=== PATIENT | female | born 1940 | race Caucasian/White ===

== ENCOUNTER → 2016-03-05 | Outpatient (CLI) | payer OTHER ==
[~2016-03-05] MED LIST: CHOL4POW4 OR; LISI-275 PO; METO25TA62 OR; PANTPAK PO; TRIA25CA OR
== END | disposition home or self-care (01) ==
LOC: LAB 11:20
PROVIDERS: ATTEND Internal Medicine
DX: Z12.11 Encounter for screening for malignant neoplasm of colon (principal)
CPT/HCPCS: 82270

== ENCOUNTER → 2016-04-23 | Outpatient (CLI) | payer OTHER | END | disposition home or self-care (01) | LOC: XYW 08:06 | PROVIDERS: ATTEND Orthopaedic Surgery | DX: Z01.818 Encounter for other preprocedural examination (principal); I05.0 Rheumatic mitral stenosis; I35.0 Nonrheumatic aortic (valve) stenosis; M16.11 Unilateral primary osteoarthritis, right hip | CPT/HCPCS: 93306 ==

== ENCOUNTER → 2016-04-23 | Outpatient (CLI) | payer OTHER ==
[2016-04-23 09:46] LABS: Basophils # (auto) 0 uL; Basophils % (auto) 0.5 % (0.0-2.0); Eosinophils # (auto) 0.1 uL; Hematocrit 41.2 % (36.0-46.0); Hemoglobin 13.3 g/dL (12.2-16.2); Lymphocytes # (auto) 2.3 uL; Lymphocytes % (auto) 24.4 % (10.0-50.0); Mean Corpuscular Hemoglobin 28.5 pg (28.0-32.0); Mean Corpuscular Hgb Conc. 32.2 g/dL (32.0-36.0); Mean Corpuscular Volume 88.6 fL (80.0-100.0); Mean Platelet Volume 8.8 fL (7.4-10.4); Monocytes # (auto) 0.6 uL; Monocytes % (auto) 6.1 % (0.0-12.0); Neutrophils # (auto) 6.4 uL; Platelet Count (auto) 401 10^3/uL (140-450); Red Cell Distribution Width 15.8 % (11.6-16.0); White Blood Cell 9.4 10^3/uL (4.4-10.8)
[2016-04-23 09:57] LABS: Urine Bilirubin Negative (Negative); Urine Blood Negative /uL (Negative); Urine Color Yellow (Yellow); Urine Glucose Normal (Normal); Urine Ketone Negative (Negative); Urine RBC 1 /hpf (0 - 4); Urine Squamous Epithelial Cell FEW /hpf (<5); Urine Urobilinogen Normal (Negative)
[2016-04-23 10:00] LABS: Urine Nitrite POSITIVE (Negative)
[2016-04-23 10:06] LABS: INR 0.99 (0.9-1.15); Partial Thromboplastin Time 25.2 sec (22.64-33.71); Prothrombin Time 10.2 sec (9.37-12.3)
[2016-04-23 10:12] LABS: Albumin 3.3 g/dL (3.4-5.0); BUN/Creatinine Ratio 32.4; Bilirubin, Total 0.3 mg/dL (0.2-1.0); Calcium 10.1 mg/dL (8.5-10.1); Potassium 4.1 mmol/L (3.5-5.1); Total Protein 7.7 g/dL (6.4-8.2)
== END | disposition home or self-care (01) ==
LOC: LAB 08:58
PROVIDERS: ATTEND Internal Medicine
DX: E11.9 Type 2 diabetes mellitus without complications (principal); Z01.812 Encounter for preprocedural laboratory examination; I10 Essential (primary) hypertension
CPT/HCPCS: 36415; 80053; 80061; 81001; 82306; 82607; 83036; 84439; 84443; 85025; 85610; 85652; 85730

== ENCOUNTER → 2016-05-08 | Outpatient (CLI) | payer OTHER ==
[~2016-05-08] VITALS: Ht 170.2 cm; Wt 72.6 kg
[~2016-05-08] MED LIST changes: +ADENOSINE 61 MG in GIVE UN-DILUTED 0 ML IV ONE
== END | disposition home or self-care (01) ==
LOC: XY 08:14
PROVIDERS: ATTEND Internal Medicine Cardiovascular Disease
DX: Z01.810 Encounter for preprocedural cardiovascular examination (principal)
CPT/HCPCS: 78452; 93017; 96374; A9500; J0153

== ENCOUNTER 2016-05-14 10:06 | Inpatient (IN) | payer OTHER ==
[~2016-05-14] VITALS: Ht 170.2 cm; Wt 69.6 kg
[~2016-05-14 10:06] MED LIST changes: -ADENOSINE 61 MG in GIVE UN-DILUTED 0 ML IV ONE
[2016-05-14 10:56] LABS: Basophils # (auto) 0 uL; Basophils % (auto) 0.5 % (0.0-2.0); Eosinophils # (auto) 0.1 uL; Eosinophils % (auto) 1.7 % (0.0-7.0); Hematocrit 41.7 % (36.0-46.0); Hemoglobin 13.6 g/dL (12.2-16.2); Lymphocytes # (auto) 1.9 uL; Lymphocytes % (auto) 22.3 % (10.0-50.0); Mean Corpuscular Hemoglobin 28.8 pg (28.0-32.0); Mean Corpuscular Hgb Conc. 32.5 g/dL (32.0-36.0); Mean Corpuscular Volume 88.5 fL (80.0-100.0); Mean Platelet Volume 8.1 fL (7.4-10.4); Monocytes # (auto) 0.5 uL; Monocytes % (auto) 5.8 % (0.0-12.0); Neutrophils % (auto) 69.7 % (37.0-80.0); Platelet Count (auto) 464 10^3/uL (140-450); Red Cell Distribution Width 16.4 % (11.6-16.0); White Blood Cell 8.6 10^3/uL (4.4-10.8)
[2016-05-14 11:35] LABS: Albumin 3.4 g/dL (3.4-5.0); BUN/Creatinine Ratio 31.8; Bilirubin, Total 0.3 mg/dL (0.2-1.0); Calcium 10.4 mg/dL (8.5-10.1); Total Protein 7.6 g/dL (6.4-8.2)
[2016-05-14 11:37] LABS: Magnesium 2.3 mg/dL (1.6-2.6)
[2016-05-14 12:15] LABS: Urine RBC None Seen /hpf (0 - 4)
[2016-05-14 13:01] LABS: Urine Bilirubin Negative (Negative); Urine Blood Negative /uL (Negative); Urine Color Yellow (Yellow); Urine Glucose Normal (Normal); Urine Ketone Negative (Negative); Urine Nitrite Negative (Negative); Urine Squamous Epithelial Cell FEW /hpf (<5); Urine Urobilinogen Normal (Negative)
[2016-05-14] MEDS ORDERED: DEXTROSE (50%) 50ML SYRG IV PRN (14:00)
[2016-05-14] MEDS ORDERED: NITROGLYCERIN 0.4 MG SL TAB SL PRN (14:00)
[2016-05-14] MEDS ORDERED: DOCUSATE SOD 100 MG CAP PO PRN (14:00)
[2016-05-14] MEDS ORDERED: ACETAMINOPHEN 325 MG TAB PO PRN (14:00)
[2016-05-14] MEDS ORDERED: ONDANSETRON HCL 4 MG/2 ML VIAL IV PRN (14:00)
[2016-05-14] MEDS ORDERED: MORPHINE SULF INJ 2 MG/ML SYRINGE 1ML IV PRN ×2 (14:00)
[2016-05-14] MEDS ORDERED: TEMAZEPAM 15 MG CAP PO PRN (14:00)
[2016-05-14] MEDS ORDERED: ASPirin-EC 81 mg tab PO ONE (14:15)
[2016-05-14] MEDS: SODIUM CHLOR 0.9% PF (SALINE LOCK) 10ML VIAL IV SCH ×2 (14:21→22:09)
[2016-05-14] MEDS ORDERED: cefTRIAXone 1GM/50ML D5W 50 ML IV ONE (15:00)
[2016-05-14 16:25] VITALS: BP 137/89
[2016-05-14 16:36] VITALS: BP 148/72
[2016-05-14] MEDS: InsuLIN REG 1unit/0.01ml Soln (100units/ml) SC SCH ×2 (17:00→22:00)
[2016-05-14] MEDS: ACCU-CHEK COMFORT CURVE STRIP VI SCH ×2 (17:01→22:09)
[2016-05-14 20:00] VITALS: BP 142/81
[2016-05-14 22:00] VITALS: BP 142/81
[2016-05-14] MEDS ORDERED: FAMOTIDINE 20 MG TAB PO SCH (22:00)
[2016-05-14] MEDS: HYDROcodone-ACET 5/325MG TAB PO PRN (22:17)
[2016-05-15] VITALS (8 sets, daily range): BP systolic 106–166; BP diastolic 66–95
[2016-05-15 06:14] LABS: Basophils # (auto) 0 uL; Basophils % (auto) 0.5 % (0.0-2.0); Eosinophils # (auto) 0.2 uL; Eosinophils % (auto) 2.4 % (0.0-7.0); Hematocrit 39.5 % (36.0-46.0); Hemoglobin 12.8 g/dL (12.2-16.2); Lymphocytes # (auto) 3.1 uL; Lymphocytes % (auto) 36.9 % (10.0-50.0); Mean Corpuscular Hemoglobin 28.7 pg (28.0-32.0); Mean Corpuscular Hgb Conc. 32.3 g/dL (32.0-36.0); Mean Corpuscular Volume 88.8 fL (80.0-100.0); Mean Platelet Volume 8.5 fL (7.4-10.4); Monocytes # (auto) 0.6 uL; Monocytes % (auto) 7.6 % (0.0-12.0); Neutrophils # (auto) 4.4 uL; Neutrophils % (auto) 52.6 % (37.0-80.0); Platelet Count (auto) 401 10^3/uL (140-450); Red Cell Distribution Width 15.3 % (11.6-16.0); White Blood Cell 8.3 10^3/uL (4.4-10.8)
[2016-05-15] MEDS: ACCU-CHEK COMFORT CURVE STRIP VI SCH ×4 (06:29→22:16)
[2016-05-15] MEDS: SODIUM CHLOR 0.9% PF (SALINE LOCK) 10ML VIAL IV SCH ×3 (06:29→22:16)
[2016-05-15] MEDS: InsuLIN REG 1unit/0.01ml Soln (100units/ml) SC SCH ×4 (06:30→22:00)
[2016-05-15 06:39] LABS: Albumin 3.1 g/dL (3.4-5.0); Alkaline Phosphatase 97 U/L (45-117); Anion Gap 12 (5-15); Aspartate Aminotransferase 11 U/L (15-37); BUN/Creatinine Ratio 35.1; Bilirubin, Total 0.4 mg/dL (0.2-1.0); Blood Urea Nitrogen 40 mg/dL (7-18); Calcium 9.6 mg/dL (8.5-10.1); Carbon Dioxide 30 mmol/L (21-32); Chloride 104 mmol/L (98-107); GFR African American 60 mL/min; GFR Non-African American 50 mL/min; Glucose 137 mg/dL (74-106); Potassium 3.5 mmol/L (3.5-5.1); Sodium 146 mmol/L (136-145); Total Protein 7.2 g/dL (6.4-8.2)
[2016-05-15] MEDS: HYDROcodone-ACET 5/325MG TAB PO PRN ×3 (07:07→21:48)
[2016-05-15] MEDS ORDERED: CALCTAB83 OR ×2 (09:10→09:53)
[2016-05-15] MEDS ORDERED: CALC-386 OR (09:12)
[2016-05-15] MEDS: FAMOTIDINE 20 MG TAB PO SCH ×2 (09:33→21:48)
[2016-05-15] MEDS: cefTRIAXone 1GM/50ML D5W 50 ML IV SCH (09:33)
[2016-05-15] MEDS: ASPirin-EC 81 mg tab PO SCH (09:37)
[2016-05-15] MEDS: MULTIPLE VITAMIN TAB PO SCH (09:47)
[2016-05-15] MEDS: METOPROLOL SUCCINATE XL 50 MG TAB PO SCH (09:48)
[2016-05-15] MEDS: LISINOPRIL 20 MG TAB PO SCH (09:49)
[2016-05-15] MEDS ORDERED: ASPirin-EC 81 mg tab PO SCH ×2 (10:00→23:00)
[2016-05-15] MEDS ORDERED: CALCIUM W/VIT D (600MG/400IU) TAB PO SCH (10:00)
[2016-05-15] MEDS ORDERED: LISINOPRIL 20 MG TAB PO SCH ×2 (10:00→23:00)
[2016-05-15] MEDS ORDERED: TRIAMTERENE/HCTZ 37.5/25 MG CAP PO SCH (10:00)
[2016-05-15] MEDS ORDERED: METOPROLOL SUCCINATE XL 50 MG TAB PO SCH ×2 (10:00→23:00)
[2016-05-15] MEDS: CHOLESTYRAMINE 4 GM POWDER PO SCH ×2 (11:00→11:14)
[2016-05-15] MEDS: SODIUM CHLORIDE 0.9% 1,000 ML IV SCH (18:10)
[2016-05-16] MEDS: SODIUM CHLOR 0.9% PF (SALINE LOCK) 10ML VIAL IV SCH ×2 (05:45→13:48)
[2016-05-16 05:49] VITALS: BP 160/88
[2016-05-16 05:55] VITALS: BP_SYST 134; BP_SYST 158; BP_DIAS 100; BP_DIAS 77
[2016-05-16] MEDS: ACCU-CHEK COMFORT CURVE STRIP VI SCH ×2 (06:05→11:29)
[2016-05-16] MEDS: InsuLIN REG 1unit/0.01ml Soln (100units/ml) SC SCH ×2 (06:05→11:29)
[2016-05-16 07:51] LABS: BUN/Creatinine Ratio 27.6; Calcium 9.5 mg/dL (8.5-10.1); Potassium 3.9 mmol/L (3.5-5.1)
[2016-05-16] MEDS: SODIUM CHLORIDE 0.9% 1,000 ML IV SCH (08:13)
[2016-05-16] MEDS: cefTRIAXone 1GM/50ML D5W 50 ML IV SCH (08:13)
[2016-05-16] MEDS: HYDROcodone-ACET 5/325MG TAB PO PRN (08:14)
[2016-05-16] MEDS: FAMOTIDINE 20 MG TAB PO SCH (08:14)
[2016-05-16] MEDS: ASPirin-EC 81 mg tab PO SCH (09:54)
[2016-05-16] MEDS: MULTIPLE VITAMIN TAB PO SCH (09:54)
[2016-05-16] MEDS: METOPROLOL SUCCINATE XL 50 MG TAB PO SCH (09:57)
[2016-05-16] MEDS: LISINOPRIL 20 MG TAB PO SCH (09:58)
[2016-05-16] MEDS: CHOLESTYRAMINE 4 GM POWDER PO SCH (10:32)
[2016-05-16] MEDS ORDERED: CIPR-173 PO (12:50)
[2016-05-16 14:05] VITALS: BP 123/86
== END 2016-05-16 15:00 | disposition home or self-care (01) | DRG 314 ==
LOC: ER 10:06 → TELE 10:07 → TELE-WESTW 15:21
PROVIDERS: ADMIT Internal Medicine; ATTEND Internal Medicine
DX: I95.9 Hypotension, unspecified (principal); N17.0 Acute kidney failure with tubular necrosis; N39.0 Urinary tract infection, site not specified; R55 Syncope and collapse; N18.3 Chronic kidney disease, stage 3 (moderate); I12.9 Hypertensive chronic kidney disease with stage 1 through stage 4 chronic kidney disease, or unspecified chronic kidney disease; E83.52 Hypercalcemia; E11.21 Type 2 diabetes mellitus with diabetic nephropathy; E11.22 Type 2 diabetes mellitus with diabetic chronic kidney disease; B96.20 Unspecified Escherichia coli [E. coli] as the cause of diseases classified elsewhere; M16.11 Unilateral primary osteoarthritis, right hip; E78.5 Hyperlipidemia, unspecified; Z85.41 Personal history of malignant neoplasm of cervix uteri; Z79.899 Other long term (current) drug therapy; Z90.49 Acquired absence of other specified parts of digestive tract; Z90.89 Acquired absence of other organs; Z90.710 Acquired absence of both cervix and uterus
CPT/HCPCS: 36415; 72192; 78582; 80048; 80053; 80061; 81001; 82962; 83036; 83735; 84443; 84484; 85025; 85379; 87086; 87088; 87186; 93005; 93971; 94761; J0696

== ENCOUNTER → 2016-05-28 | Outpatient (CLI) | payer OTHER ==
[~2016-05-28] MED LIST changes: +CALCTAB83 OR; +CIPR-173 PO; -TRIA25CA OR
[2016-05-28 13:48] LABS: BUN/Creatinine Ratio 32.3; Calcium 10.1 mg/dL (8.5-10.1); Potassium 4.2 mmol/L (3.5-5.1)
== END | disposition home or self-care (01) ==
LOC: LAB 12:58
PROVIDERS: ATTEND Internal Medicine
DX: Z00.00 Encounter for general adult medical examination without abnormal findings (principal)
CPT/HCPCS: 36415; 80048; 84443

== ENCOUNTER 2016-07-03 10:08 | Inpatient (IN) | payer OTHER ==
[2016-06-29 14:47] LABS: Urine RBC None Seen /hpf (0 - 4)
[2016-06-29 15:06] LABS: Basophils # (auto) 0 uL; Basophils % (auto) 0.5 % (0.0-2.0); Eosinophils # (auto) 0.1 uL; Eosinophils % (auto) 1.6 % (0.0-7.0); Hematocrit 40.3 % (36.0-46.0); Hemoglobin 13.1 g/dL (12.2-16.2); Lymphocytes # (auto) 2.5 uL; Lymphocytes % (auto) 28.3 % (10.0-50.0); Mean Corpuscular Hemoglobin 29.5 pg (28.0-32.0); Mean Corpuscular Hgb Conc. 32.7 g/dL (32.0-36.0); Mean Corpuscular Volume 90.5 fL (80.0-100.0); Mean Platelet Volume 8.8 fL (7.4-10.4); Monocytes # (auto) 0.7 uL; Monocytes % (auto) 8.1 % (0.0-12.0); Neutrophils # (auto) 5.5 uL; Neutrophils % (auto) 61.5 % (37.0-80.0); Platelet Count (auto) 368 10^3/uL (140-450); Red Cell Distribution Width 16.1 % (11.6-16.0); White Blood Cell 8.9 10^3/uL (4.4-10.8)
[2016-06-29 15:13] LABS: Urine Bilirubin Negative (Negative); Urine Blood Negative /uL (Negative); Urine Color Yellow (Yellow); Urine Glucose Normal (Normal); Urine Ketone Negative (Negative); Urine Nitrite Negative (Negative); Urine Squamous Epithelial Cell FEW /hpf (<5); Urine Urobilinogen Normal (Negative)
[2016-06-29 15:27] LABS: INR 0.93 (0.9-1.15); Partial Thromboplastin Time 24.5 sec (22.64-33.71)
[2016-06-29 15:28] LABS: Albumin 3.5 g/dL (3.4-5.0); BUN/Creatinine Ratio 37.3; Bilirubin, Total 0.4 mg/dL (0.2-1.0); Calcium 10.1 mg/dL (8.5-10.1); Potassium 3.8 mmol/L (3.5-5.1); Total Protein 7.8 g/dL (6.4-8.2)
[~2016-07-03] VITALS: Ht 165.1 cm; Wt 76.5 kg
[~2016-07-03 10:08] MED LIST changes: -CALCTAB83 OR; -CHOL4POW4 OR; -CIPR-173 PO; +HYDR-391 PO; +LISI10TA6 PO; +TRIA75TA55 PO
[2016-07-03] MEDS ORDERED: ceFAZolin 1GM/50ML D5W 100 ML IV ONE (11:51)
[2016-07-03] MEDS ORDERED: TETRACAINE 1% INJ 2 ML VIAL IJ ONE (13:12)
[2016-07-03] MEDS ORDERED: MIDAZOLAM HCL 1MG/1ML-2 ML VIAL ONE (13:32)
[2016-07-03] MEDS ORDERED: fentaNYL CITRATE 100 MCG/2 ML VL ONE (13:32)
[2016-07-03] MEDS ORDERED: MEPERIDINE HCL (50 MG/ML) 1 ML VIAL ONE (13:32)
[2016-07-03] MEDS ORDERED: DEXAMETHASONE SOD PHOS 10MG/1ML VIAL INJ ONE (14:45)
[2016-07-03] MEDS ORDERED: PROPOFOL 10 MG/ML 20 ML IV ONE (14:45)
[2016-07-03] MEDS ORDERED: ONDANSETRON HCL 4 MG/2 ML VIAL IV ONE (16:30)
[2016-07-03] MEDS ORDERED: NITROGLYCERIN 0.4 MG SL TAB SL PRN (16:30)
[2016-07-03] MEDS ORDERED: ePHEDrine SULFATE 50 MG/ML AMP IV PRN (16:30)
[2016-07-03] MEDS ORDERED: MORPHINE SULF INJ 2 MG/ML SYRINGE 1ML IV PRN (16:30)
[2016-07-03] MEDS ORDERED: ACETAMINOPHEN 325 MG TAB PO PRN (16:30)
[2016-07-03] MEDS ORDERED: hydrALAZINE HCL 20 MG/ML VL IV PRN (16:30)
[2016-07-03] MEDS ORDERED: HYDROmorphone HCL 2 MG/ML VL IV PRN (16:30)
[2016-07-03 17:38] VITALS: BP 114/66
[2016-07-03] MEDS: ceFAZolin 1GM/50ML D5W 50 ML IV SCH (18:19)
[2016-07-03] MEDS: LACTATED RINGER'S 1,000 ML IV SCH (18:19)
[2016-07-03] MEDS: HYDROmorphone HCL 2 MG/ML VL IV PRN ×3 (18:48→23:13)
[2016-07-03] MEDS: HYDROcodone-ACET 10/325MG TAB PO PRN (19:41)
[2016-07-03 20:00] VITALS: BP 121/59
[2016-07-03 21:28] VITALS: BP 121/59
[2016-07-03] MEDS: SODIUM CHLOR 0.9% PF (SALINE LOCK) 10ML VIAL IV SCH (22:13)
[2016-07-03] MEDS: oxyCODONE ER 10 MG TAB PO SCH (22:13)
[2016-07-03] MEDS: DOCUSATE SOD 100 MG CAP PO SCH (22:13)
[2016-07-04] MEDS: ceFAZolin 1GM/50ML D5W 50 ML IV SCH ×2 (00:14→06:03)
[2016-07-04] MEDS: TEMAZEPAM 15 MG CAP PO PRN (01:52)
[2016-07-04] MEDS: HYDROmorphone HCL 2 MG/ML VL IV PRN ×3 (01:52→07:56)
[2016-07-04 04:55] VITALS: BP 112/59
[2016-07-04] MEDS: SODIUM CHLOR 0.9% PF (SALINE LOCK) 10ML VIAL IV SCH ×3 (06:03→20:59)
[2016-07-04] MEDS: HYDROcodone-ACET 10/325MG TAB PO PRN ×3 (06:53→15:44)
[2016-07-04 08:10] LABS: Hematocrit 35.9 % (36.0-46.0); Hemoglobin 11.7 g/dL (12.2-16.2)
[2016-07-04 09:01] VITALS: BP 131/67
[2016-07-04] MEDS: DOCUSATE SOD 100 MG CAP PO SCH ×2 (10:03→20:59)
[2016-07-04] MEDS: oxyCODONE ER 10 MG TAB PO SCH ×2 (10:04→20:59)
[2016-07-04] MEDS: ENOXAPARIN SOD 40 MG/0.4 ML SYRINGE SC SCH (10:04)
[2016-07-04] MEDS ORDERED: HYDROmorphone HCL 2 MG/ML VL IV PRN (11:00)
[2016-07-04] MEDS: LACTATED RINGER'S 1,000 ML IV SCH (12:25)
[2016-07-04 13:00] VITALS: BP 112/60
[2016-07-04 16:15] VITALS: BP 122/59
[2016-07-04] MEDS: MORPHINE SULF INJ 2 MG/ML SYRINGE 1ML IV PRN (18:49)
[2016-07-04 21:31] VITALS: BP 129/67
[2016-07-05 04:57] VITALS: BP 157/80
[2016-07-05] MEDS: MORPHINE SULF INJ 2 MG/ML SYRINGE 1ML IV PRN (05:25)
[2016-07-05] MEDS: SODIUM CHLOR 0.9% PF (SALINE LOCK) 10ML VIAL IV SCH ×3 (05:25→21:36)
[2016-07-05 06:44] LABS: BUN/Creatinine Ratio 19.7; Calcium 9.6 mg/dL (8.5-10.1); Potassium 3.6 mmol/L (3.5-5.1)
[2016-07-05 07:45] LABS: Hematocrit 35.2 % (36.0-46.0); Hemoglobin 11.7 g/dL (12.2-16.2)
[2016-07-05 08:00] VITALS: BP 149/77
[2016-07-05 08:01] VITALS: BP 149/77
[2016-07-05] MEDS: HYDROcodone-ACET 10/325MG TAB PO PRN (08:41)
[2016-07-05] MEDS ORDERED: CELECOXIB 100 MG CAP PO ONE (09:45)
[2016-07-05] MEDS: oxyCODONE ER 10 MG TAB PO SCH ×2 (10:00→21:37)
[2016-07-05] MEDS: CELECOXIB 100 MG CAP PO SCH (10:00)
[2016-07-05] MEDS: ENOXAPARIN SOD 40 MG/0.4 ML SYRINGE SC SCH (10:36)
[2016-07-05] MEDS: DOCUSATE SOD 100 MG CAP PO SCH ×2 (10:36→21:36)
[2016-07-05] MEDS: HYDROmorphone HCL 2 MG/ML VL IV PRN ×2 (10:36→16:38)
[2016-07-05 13:00] VITALS: BP 96/61
[2016-07-05 16:40] VITALS: BP 116/72
[2016-07-05 22:00] VITALS: BP 98/60
[2016-07-06] MEDS: HYDROcodone-ACET 10/325MG TAB PO PRN (04:41)
[2016-07-06 05:03] VITALS: BP 148/71
[2016-07-06] MEDS: SODIUM CHLOR 0.9% PF (SALINE LOCK) 10ML VIAL IV SCH ×3 (05:42→21:39)
[2016-07-06 07:06] LABS: Hematocrit 35.8 % (36.0-46.0); Hemoglobin 11.9 g/dL (12.2-16.2)
[2016-07-06 07:20] LABS: BUN/Creatinine Ratio 19.7; Potassium 3.6 mmol/L (3.5-5.1)
[2016-07-06 08:00] VITALS: BP 97/56
[2016-07-06 08:28] VITALS: BP 97/56
[2016-07-06] MEDS: oxyCODONE ER 10 MG TAB PO SCH ×2 (08:43→21:40)
[2016-07-06] MEDS: CELECOXIB 100 MG CAP PO SCH (08:43)
[2016-07-06] MEDS: DOCUSATE SOD 100 MG CAP PO SCH ×2 (08:43→21:40)
[2016-07-06] MEDS: ENOXAPARIN SOD 40 MG/0.4 ML SYRINGE SC SCH (08:44)
[2016-07-06 12:57] VITALS: BP 131/94
[2016-07-06] MEDS: HYDROmorphone HCL 2 MG/ML VL IV PRN (14:29)
[2016-07-06 17:05] VITALS: BP 117/73
[2016-07-06 21:39] VITALS: BP 166/78
[2016-07-07] VITALS (7 sets, daily range): BP systolic 142–179; BP diastolic 66–97
[2016-07-07] MEDS: SODIUM CHLOR 0.9% PF (SALINE LOCK) 10ML VIAL IV SCH ×3 (06:13→21:52)
[2016-07-07] MEDS: HYDROmorphone HCL 2 MG/ML VL IV PRN ×3 (06:25→16:54)
[2016-07-07 07:18] LABS: BUN/Creatinine Ratio 24.8; Calcium 9.7 mg/dL (8.5-10.1); Potassium 3.2 mmol/L (3.5-5.1)
[2016-07-07 07:30] LABS: Hematocrit 33.9 % (36.0-46.0); Hemoglobin 11.2 g/dL (12.2-16.2)
[2016-07-07] MEDS: oxyCODONE ER 10 MG TAB PO SCH ×2 (10:17→21:42)
[2016-07-07] MEDS: DOCUSATE SOD 100 MG CAP PO SCH ×2 (10:18→21:44)
[2016-07-07] MEDS: ENOXAPARIN SOD 40 MG/0.4 ML SYRINGE SC SCH (10:18)
[2016-07-07] MEDS ORDERED: BISACODYL 5 MG EC TAB PO ONE (12:00)
[2016-07-07] MEDS ORDERED: POTASSIUM CHL 10 Meq TABLET PO ONE (20:15)
[2016-07-07] MEDS ORDERED: LISINOPRIL 10 MG TAB PO ONE (20:15)
[2016-07-08] VITALS (8 sets, daily range): BP systolic 122–145; BP diastolic 63–92
[2016-07-08] MEDS: HYDROmorphone HCL 2 MG/ML VL IV PRN ×4 (03:43→16:25)
[2016-07-08] MEDS: SODIUM CHLOR 0.9% PF (SALINE LOCK) 10ML VIAL IV SCH ×3 (07:43→23:18)
[2016-07-08] MEDS: DOCUSATE SOD 100 MG CAP PO SCH ×2 (10:26→22:39)
[2016-07-08] MEDS: LISINOPRIL 10 MG TAB PO SCH (10:26)
[2016-07-08] MEDS: oxyCODONE ER 10 MG TAB PO SCH ×2 (10:26→22:40)
[2016-07-08] MEDS: ENOXAPARIN SOD 40 MG/0.4 ML SYRINGE SC SCH (10:27)
[2016-07-08] MEDS: TEMAZEPAM 15 MG CAP PO PRN (11:45)
[2016-07-09] VITALS (7 sets, daily range): BP systolic 104–157; BP diastolic 68–84
[2016-07-09 06:40] LABS: Basophils # (auto) 0 uL; Basophils % (auto) 0.2 % (0.0-2.0); Eosinophils # (auto) 0.1 uL; Eosinophils % (auto) 0.7 % (0.0-7.0); Hematocrit 29.8 % (36.0-46.0); Hemoglobin 9.9 g/dL (12.2-16.2); Lymphocytes # (auto) 0.9 uL; Lymphocytes % (auto) 12.8 % (10.0-50.0); Mean Corpuscular Hemoglobin 30.1 pg (28.0-32.0); Mean Corpuscular Hgb Conc. 33.4 g/dL (32.0-36.0); Mean Corpuscular Volume 90.1 fL (80.0-100.0); Monocytes # (auto) 0.7 uL; Monocytes % (auto) 9.2 % (0.0-12.0); Neutrophils # (auto) 5.6 uL; Neutrophils % (auto) 77.1 % (37.0-80.0); Platelet Count (auto) 358 10^3/uL (140-450); Red Cell Distribution Width 15.3 % (11.6-16.0); White Blood Cell 7.2 10^3/uL (4.4-10.8)
[2016-07-09] MEDS: HYDROcodone-ACET 10/325MG TAB PO PRN (06:55)
[2016-07-09] MEDS: SODIUM CHLOR 0.9% PF (SALINE LOCK) 10ML VIAL IV SCH ×3 (06:55→21:17)
[2016-07-09] MEDS: HYDROmorphone HCL 2 MG/ML VL IV PRN (09:45)
[2016-07-09] MEDS: oxyCODONE ER 10 MG TAB PO SCH ×2 (10:12→21:17)
[2016-07-09] MEDS: DOCUSATE SOD 100 MG CAP PO SCH ×2 (10:12→21:17)
[2016-07-09] MEDS: ENOXAPARIN SOD 40 MG/0.4 ML SYRINGE SC SCH (10:13)
[2016-07-09] MEDS: LISINOPRIL 10 MG TAB PO SCH (10:13)
[2016-07-09] MEDS ORDERED: HYDROmorphone HCL 2 MG/ML VL IV PRN (10:45)
[2016-07-09] MEDS: TEMAZEPAM 15 MG CAP PO PRN (21:17)
[2016-07-10 05:41] VITALS: BP 130/70
[2016-07-10] MEDS: SODIUM CHLOR 0.9% PF (SALINE LOCK) 10ML VIAL IV SCH ×2 (06:13→14:00)
[2016-07-10 08:00] VITALS: BP 153/86
[2016-07-10 08:27] VITALS: BP 153/86
[2016-07-10] MEDS: DOCUSATE SOD 100 MG CAP PO SCH (09:37)
[2016-07-10] MEDS: LISINOPRIL 10 MG TAB PO SCH (09:38)
[2016-07-10] MEDS: ENOXAPARIN SOD 40 MG/0.4 ML SYRINGE SC SCH (09:38)
[2016-07-10] MEDS: oxyCODONE ER 10 MG TAB PO SCH (09:38)
[2016-07-10] MEDS ORDERED: LACTULOSE 20Gm/30ML SOLN PO ONE (10:30)
[2016-07-10] MEDS ORDERED: POLYETHYLENE GLYCOL 17GM PWDR PO ONE (10:30)
[2016-07-10 11:36] VITALS: BP 153/86
[2016-07-10 12:30] VITALS: BP 133/88
[2016-07-10 16:27] VITALS: BP 135/75
== END 2016-07-10 17:51 | disposition home or self-care (01) | DRG 470 ==
LOC: SUR 10:08 → TELE-CENTR 10:09 → CENTRAL 19:21
PROVIDERS: ADMIT Orthopaedic Surgery; ATTEND Internal Medicine
PROC: 0SR90JZ Replacement of Right Hip Joint with Synthetic Substitute, Open Approach (ICD-10-PCS; principal; 2016-07-03 13:31)
DX: M16.11 Unilateral primary osteoarthritis, right hip (principal); M70.60 Trochanteric bursitis, unspecified hip; Z85.41 Personal history of malignant neoplasm of cervix uteri; Z92.3 Personal history of irradiation; E11.22 Type 2 diabetes mellitus with diabetic chronic kidney disease; I12.9 Hypertensive chronic kidney disease with stage 1 through stage 4 chronic kidney disease, or unspecified chronic kidney disease; N18.3 Chronic kidney disease, stage 3 (moderate)
CPT/HCPCS: 36415; 73501; 76775; 80048; 80053; 81001; 84132; 85014; 85018; 85025; 85610; 85730; 86850; 86900; 86901; 87070; 87075; 87205; 97110; 97116; 97530; A4565; J0690; J1100; J2250; J2704

== ENCOUNTER → 2016-07-20 | Outpatient (CLI) | payer OTHER ==
[2016-07-20 15:36] LABS: Basophils # (auto) 0 uL; Basophils % (auto) 0.2 % (0.0-2.0); DEFINITIVE VIEW TRANSMISSION; Eosinophils # (auto) 0.1 uL; Eosinophils % (auto) 0.8 % (0.0-7.0); Hematocrit 35.5 % (36.0-46.0); Hemoglobin 11.7 g/dL (12.2-16.2); Lymphocytes # (auto) 1.9 uL; Lymphocytes % (auto) 18.7 % (10.0-50.0); Mean Corpuscular Hgb Conc. 33.1 g/dL (32.0-36.0); Mean Corpuscular Volume 90.8 fL (80.0-100.0); Mean Platelet Volume 7.6 fL (7.4-10.4); Monocytes # (auto) 0.8 uL; Neutrophils # (auto) 7.4 uL; Neutrophils % (auto) 72.3 % (37.0-80.0); Red Cell Distribution Width 17.1 % (11.6-16.0); White Blood Cell 10.3 10^3/uL (4.4-10.8)
[2016-07-20 15:39] LABS: Albumin 2.8 g/dL (3.4-5.0); Calcium 9.5 mg/dL (8.5-10.1); Platelet Count (auto) 771 10^3/uL (140-450); Potassium 3.6 mmol/L (3.5-5.1)
[2016-07-20 15:42] LABS: Bilirubin, Total 0.2 mg/dL (0.2-1.0); Total Protein 7.2 g/dL (6.4-8.2)
== END | disposition home or self-care (01) ==
LOC: LAB 15:02
PROVIDERS: ATTEND Internal Medicine
DX: R19.7 Diarrhea, unspecified (principal)
CPT/HCPCS: 36415; 80053; 85025

== ENCOUNTER → 2016-07-24 | Outpatient (CLI) | payer OTHER | END | disposition home or self-care (01) | LOC: LAB 13:07 | PROVIDERS: ATTEND Internal Medicine | DX: E11.9 Type 2 diabetes mellitus without complications (principal); R19.7 Diarrhea, unspecified | CPT/HCPCS: 87493 ==

== ENCOUNTER → 2016-07-30 | Outpatient (CLI) | payer OTHER ==
[2016-07-30 10:31] LABS: Basophils # (auto) 0.1 uL; Basophils % (auto) 0.9 % (0.0-2.0); Eosinophils # (auto) 0.1 uL; Eosinophils % (auto) 1.7 % (0.0-7.0); Hematocrit 35.9 % (36.0-46.0); Hemoglobin 11.7 g/dL (12.2-16.2); Lymphocytes # (auto) 1.8 uL; Lymphocytes % (auto) 31.2 % (10.0-50.0); Mean Corpuscular Hemoglobin 29.7 pg (28.0-32.0); Mean Corpuscular Hgb Conc. 32.5 g/dL (32.0-36.0); Mean Corpuscular Volume 91.4 fL (80.0-100.0); Mean Platelet Volume 8.4 fL (7.4-10.4); Monocytes # (auto) 0.5 uL; Monocytes % (auto) 8.8 % (0.0-12.0); Neutrophils # (auto) 3.2 uL; Neutrophils % (auto) 57.4 % (37.0-80.0); Platelet Count (auto) 483 10^3/uL (140-450); White Blood Cell 5.7 10^3/uL (4.4-10.8)
== END | disposition home or self-care (01) ==
LOC: LAB 09:50
PROVIDERS: ATTEND Internal Medicine
DX: D47.3 Essential (hemorrhagic) thrombocythemia (principal); I10 Essential (primary) hypertension
CPT/HCPCS: 36415; 83036; 84132; 85025

== ENCOUNTER → 2017-03-05 | Outpatient (CLI) | payer OTHER ==
[~2017-03-05] MED LIST changes: -HYDR-391 PO; +HYDR-392 PO
[2017-03-05 13:03] LABS: Basophils # (auto) 0.1 uL; Eosinophils # (auto) 0.1 uL; Eosinophils % (auto) 2.3 % (0.0-7.0); Hematocrit 39.5 % (36.0-46.0); Hemoglobin 12.7 g/dL (12.2-16.2); Lymphocytes % (auto) 31.7 % (10.0-50.0); Mean Corpuscular Hemoglobin 29.6 pg (28.0-32.0); Mean Corpuscular Hgb Conc. 32.2 g/dL (32.0-36.0); Monocytes # (auto) 0.5 uL; Monocytes % (auto) 7.2 % (0.0-12.0); Neutrophils # (auto) 3.7 uL; Neutrophils % (auto) 57.8 % (37.0-80.0); Platelet Count (auto) 423 10^3/uL (140-450); Red Blood Cells 4.29 10^6/uL (4.0-5.20); Red Cell Distribution Width 15.2 % (11.8-14.3); White Blood Cell 6.3 10^3/uL (4.4-10.8)
[2017-03-05 13:50] LABS: Albumin 3.1 g/dL (3.4-5.0); BUN/Creatinine Ratio 28.2; Bilirubin, Total 0.3 mg/dL (0.2-1.0); Calcium 9.6 mg/dL (8.5-10.1); Total Protein 7.3 g/dL (6.4-8.2); Uric Acid 5.8 mg/dL (2.6-6.0)
== END | disposition home or self-care (01) ==
LOC: LAB 12:20
PROVIDERS: ATTEND Internal Medicine
DX: E11.9 Type 2 diabetes mellitus without complications (principal); D64.9 Anemia, unspecified
CPT/HCPCS: 36415; 80053; 83036; 83970; 84550; 85025

== ENCOUNTER → 2017-08-27 | Outpatient (CLI) | payer OTHER ==
[2017-08-27 12:25] LABS: Basophils # (auto) 0 uL; Basophils % (auto) 0.3 % (0.0-2.0); Eosinophils # (auto) 0.2 uL; Eosinophils % (auto) 2.5 % (0.0-7.0); Hematocrit 40.1 % (36.0-46.0); Hemoglobin 13.1 g/dL (12.2-16.2); Lymphocytes # (auto) 2.4 uL; Lymphocytes % (auto) 37.1 % (10.0-50.0); Mean Corpuscular Hemoglobin 29.9 pg (28.0-32.0); Mean Corpuscular Hgb Conc. 32.7 g/dL (32.0-36.0); Mean Corpuscular Volume 91.5 fL (80.0-100.0); Monocytes # (auto) 0.5 uL; Monocytes % (auto) 7.5 % (0.0-12.0); Neutrophils # (auto) 3.5 uL; Neutrophils % (auto) 52.6 % (37.0-80.0); Nucleated Red Blood Cells % 0.1 %; Platelet Count (auto) 291 10^3/uL (140-450); Red Blood Cells 4.38 10^6/uL (4.0-5.20); Red Cell Distribution Width 15.5 % (11.8-14.3); White Blood Cell 6.6 10^3/uL (4.4-10.8)
[2017-08-27 12:34] LABS: Urine Bacteria NONE SEEN /hpf (None Seen); Urine Blood Negative /uL (Negative); Urine Hyaline Cast FEW /lpf (0 - 2); Urine Specific Gravity 1.014 (1.001-1.035); Urine WBC 1 /hpf (0 - 5)
[2017-08-27 12:55] LABS: Free T4 (Free Thyroxine) 1.1 ng/dL (0.89-1.76)
[2017-08-27 13:05] LABS: Albumin 3.4 g/dL (3.4-5.0); BUN/Creatinine Ratio 24.8; Bilirubin, Total 0.4 mg/dL (0.2-1.0); Calcium 9.8 mg/dL (8.5-10.1); Potassium 3.8 mmol/L (3.5-5.1); Uric Acid 5.7 mg/dL (2.6-6.0)
== END | disposition home or self-care (01) ==
LOC: LAB 11:09
PROVIDERS: ATTEND Internal Medicine
DX: I12.9 Hypertensive chronic kidney disease with stage 1 through stage 4 chronic kidney disease, or unspecified chronic kidney disease (principal); E11.22 Type 2 diabetes mellitus with diabetic chronic kidney disease; N18.3 Chronic kidney disease, stage 3 (moderate); E78.5 Hyperlipidemia, unspecified; E78.00 Pure hypercholesterolemia, unspecified; Z79.899 Other long term (current) drug therapy
CPT/HCPCS: 36415; 80053; 80061; 81001; 82043; 82607; 83036; 83970; 84439; 84443; 84550; 85025; 85652

== ENCOUNTER → 2018-03-20 | Outpatient (CLI) | payer OTHER ==
[2018-03-20 14:07] LABS: Basophils # (auto) 0.1 uL; Basophils % (auto) 0.8 % (0.0-2.0); Eosinophils # (auto) 0.1 uL; Eosinophils % (auto) 1.7 % (0.0-7.0); Hematocrit 42.8 % (36.0-46.0); Hemoglobin 14.2 g/dL (12.2-16.2); Lymphocytes # (auto) 1.9 uL; Lymphocytes % (auto) 26.1 % (10.0-50.0); Mean Corpuscular Hemoglobin 30.7 pg (28.0-32.0); Mean Corpuscular Hgb Conc. 33.3 g/dL (32.0-36.0); Mean Corpuscular Volume 92.1 fL (80.0-100.0); Monocytes # (auto) 0.5 uL; Monocytes % (auto) 7.5 % (0.0-12.0); Neutrophils # (auto) 4.7 uL; Neutrophils % (auto) 63.9 % (37.0-80.0); Nucleated Red Blood Cells % 0.1 %; Platelet Count (auto) 305 10^3/uL (140-450); Red Blood Cells 4.64 10^6/uL (4.0-5.20); Red Cell Distribution Width 14.5 % (11.8-14.3); White Blood Cell 7.4 10^3/uL (4.4-10.8)
[2018-03-20 14:36] LABS: Albumin 3.3 g/dL (3.4-5.0); Calcium 9.5 mg/dL (8.5-10.1); Potassium 4.2 mmol/L (3.5-5.1)
[2018-03-20 14:40] LABS: BUN/Creatinine Ratio 32.3; Bilirubin, Total 0.4 mg/dL (0.2-1.0); Total Protein 7.1 g/dL (6.4-8.2); Uric Acid 6.4 mg/dL (2.6-6.0)
== END | disposition home or self-care (01) ==
LOC: LAB 13:51
PROVIDERS: ATTEND Internal Medicine
DX: I12.9 Hypertensive chronic kidney disease with stage 1 through stage 4 chronic kidney disease, or unspecified chronic kidney disease (principal); N18.3 Chronic kidney disease, stage 3 (moderate)
CPT/HCPCS: 36415; 80053; 83036; 83970; 84550; 85025

== ENCOUNTER → 2018-05-09 | Outpatient (CLI) | payer OTHER ==
[2018-05-09 13:48] LABS: Basophils # (auto) 0 uL; Basophils % (auto) 0.7 % (0.0-2.0); Eosinophils # (auto) 0.1 uL; Eosinophils % (auto) 1.5 % (0.0-7.0); Hemoglobin 13.9 g/dL (12.2-16.2); Lymphocytes # (auto) 2.2 uL; Lymphocytes % (auto) 29.8 % (10.0-50.0); Mean Corpuscular Hemoglobin 29.9 pg (28.0-32.0); Mean Corpuscular Hgb Conc. 32.4 g/dL (32.0-36.0); Mean Corpuscular Volume 92.5 fL (80.0-100.0); Monocytes # (auto) 0.5 uL; Monocytes % (auto) 6.4 % (0.0-12.0); Neutrophils # (auto) 4.5 uL; Neutrophils % (auto) 61.6 % (37.0-80.0); Nucleated Red Blood Cells % 0.1 %; Platelet Count (auto) 315 10^3/uL (140-450); Red Blood Cells 4.64 10^6/uL (4.0-5.20); Red Cell Distribution Width 14.9 % (11.8-14.3); White Blood Cell 7.3 10^3/uL (4.4-10.8)
[2018-05-09 13:52] LABS: Urine Bacteria NONE SEEN /hpf (None Seen); Urine Blood Negative /uL (Negative); Urine Mucus FEW (None Seen); Urine Specific Gravity 1.011 (1.001-1.035); Urine WBC 1 /hpf (0 - 5)
[2018-05-09 15:24] LABS: Albumin 3.3 g/dL (3.4-5.0); Calcium 9.5 mg/dL (8.5-10.1); Potassium 3.1 mmol/L (3.5-5.1)
[2018-05-09 15:27] LABS: BUN/Creatinine Ratio 27.8; Bilirubin, Total 0.4 mg/dL (0.2-1.0); Total Protein 7.3 g/dL (6.4-8.2)
== END | disposition home or self-care (01) ==
LOC: LAB 13:26
PROVIDERS: ATTEND Internal Medicine
DX: M25.50 Pain in unspecified joint (principal); G31.84 Mild cognitive impairment of uncertain or unknown etiology
CPT/HCPCS: 36415; 80053; 81001; 82607; 84443; 85025; 85652; 86200; 86431

== ENCOUNTER → 2018-10-03 | Outpatient (CLI) | payer OTHER ==
[2018-10-03 10:08] LABS: Basophils # (auto) 0.1 uL; Basophils % (auto) 1.1 % (0.0-2.0); Eosinophils # (auto) 0.1 uL; Eosinophils % (auto) 2.3 % (0.0-7.0); Hematocrit 39.9 % (36.0-46.0); Hemoglobin 13.1 g/dL (12.2-16.2); Lymphocytes # (auto) 2.3 uL; Lymphocytes % (auto) 36.6 % (10.0-50.0); Mean Corpuscular Hemoglobin 30.2 pg (28.0-32.0); Mean Corpuscular Hgb Conc. 32.9 g/dL (32.0-36.0); Mean Corpuscular Volume 91.8 fL (80.0-100.0); Monocytes # (auto) 0.4 uL; Monocytes % (auto) 6.7 % (0.0-12.0); Neutrophils # (auto) 3.3 uL; Neutrophils % (auto) 53.3 % (37.0-80.0); Nucleated Red Blood Cells % 0.1 %; Platelet Count (auto) 308 10^3/uL (140-450); Red Blood Cells 4.34 10^6/uL (4.0-5.20); Red Cell Distribution Width 15.7 % (11.8-14.3); White Blood Cell 6.3 10^3/uL (4.4-10.8)
[2018-10-03 10:40] LABS: Albumin 3.3 g/dL (3.4-5.0); Calcium 10.1 mg/dL (8.5-10.1)
[2018-10-03 10:43] LABS: BUN/Creatinine Ratio 25.2; Bilirubin, Total 0.3 mg/dL (0.2-1.0); Total Protein 7.4 g/dL (6.4-8.2)
== END | disposition home or self-care (01) ==
LOC: LAB 09:42
PROVIDERS: ATTEND Internal Medicine
DX: R59.0 Localized enlarged lymph nodes (principal)
CPT/HCPCS: 36415; 80053; 83615; 85025

== ENCOUNTER → 2018-11-11 | Outpatient (CLI) | payer OTHER ==
[2018-11-11 11:19] LABS: Basophils # (auto) 0 uL; Basophils % (auto) 0.7 % (0.0-2.0); Eosinophils # (auto) 0.1 uL; Eosinophils % (auto) 2.4 % (0.0-7.0); Hematocrit 39.2 % (36.0-46.0); Hemoglobin 12.7 g/dL (12.2-16.2); Lymphocytes # (auto) 1.8 uL; Lymphocytes % (auto) 32.3 % (10.0-50.0); Mean Corpuscular Hgb Conc. 32.3 g/dL (32.0-36.0); Mean Corpuscular Volume 92.9 fL (80.0-100.0); Monocytes # (auto) 0.5 uL; Monocytes % (auto) 9.3 % (0.0-12.0); Neutrophils # (auto) 3.1 uL; Neutrophils % (auto) 55.3 % (37.0-80.0); Platelet Count (auto) 307 10^3/uL (140-450); Red Blood Cells 4.22 10^6/uL (4.0-5.20); Red Cell Distribution Width 15.5 % (11.8-14.3); White Blood Cell 5.6 10^3/uL (4.4-10.8)
[2018-11-11 11:31] LABS: INR < 0.93 (0.9-1.15); Partial Thromboplastin Time 26.1 sec (23.64-32.05)
== END | disposition home or self-care (01) ==
LOC: LAB 10:48
PROVIDERS: ATTEND Internal Medicine
DX: Z01.818 Encounter for other preprocedural examination (principal); I10 Essential (primary) hypertension
CPT/HCPCS: 36415; 85025; 85610; 85730

== ENCOUNTER → 2018-11-12 | Outpatient (CLI) | payer OTHER ==
[~2018-11-12] VITALS: Ht 30.5 cm; Wt 0.5 kg
[~2018-11-12] MED LIST changes: +ATOR10TA PO; +CHL4PW PO; +FURO40TA4 PO; +GELATIN 1 SPONGE SIZE 50 TOP ONE; +LIDOCAINE 2%HCL (LOCAL ANESTH.) INJ 20ML MDV ONE; +MIDAZOLAM HCL 1MG/1ML-2 ML VIAL IV ONE; +MIDAZOLAM HCL 1MG/1ML-2 ML VIAL ONE; +POTA10TA51 PO; +fentaNYL CITRATE 100 MCG/2 ML VL IV ONE; +fentaNYL CITRATE 100 MCG/2 ML VL ONE
== END | disposition home or self-care (01) ==
LOC: CT 10:35
PROVIDERS: ATTEND Internal Medicine
DX: D49.89 Neoplasm of unspecified behavior of other specified sites (principal); Z85.41 Personal history of malignant neoplasm of cervix uteri; Z87.891 Personal history of nicotine dependence; Z90.49 Acquired absence of other specified parts of digestive tract; Z79.899 Other long term (current) drug therapy
CPT/HCPCS: 38505; 74170; 77012; 88305; 88342; J2250; J3010; 10022; 49180; 99152; 99153

== ENCOUNTER 2018-11-20 08:27 | Inpatient (IN) | payer OTHER ==
[~2018-11-20] VITALS: Ht 167.6 cm; Wt 90.0 kg
[2018-11-20] VITALS (24 sets, daily range): BP systolic 94–159; BP diastolic 28–83
[~2018-11-20 08:27] MED LIST changes: -ATOR10TA PO; -CHL4PW PO; -FURO40TA4 PO; -GELATIN 1 SPONGE SIZE 50 TOP ONE; -LIDOCAINE 2%HCL (LOCAL ANESTH.) INJ 20ML MDV ONE; -MIDAZOLAM HCL 1MG/1ML-2 ML VIAL IV ONE; -MIDAZOLAM HCL 1MG/1ML-2 ML VIAL ONE; -POTA10TA51 PO; -fentaNYL CITRATE 100 MCG/2 ML VL IV ONE; -fentaNYL CITRATE 100 MCG/2 ML VL ONE
[2018-11-20] MEDS ORDERED: ONDANSETRON HCL 4 MG/2 ML VIAL ONE (08:34)
[2018-11-20] MEDS ORDERED: MORPHINE SULFATE 4 MG/ML SYR/VIAL ONE (08:34)
[2018-11-20] MEDS ORDERED: SODIUM CHLORIDE 0.9% 1,000 ML IV ONE (08:44)
[2018-11-20] MEDS ORDERED: LORazepam 2MG/ML-1ML VIAL IV ONE (08:45)
[2018-11-20] MEDS ORDERED: ENOXAPARIN SOD 80 MG/0.8ML SYRINGE SC ONE (08:45)
[2018-11-20] MEDS ORDERED: NITROGLYCERIN 0.4 MG SL TAB SL ONE (08:45)
[2018-11-20] MEDS ORDERED: ONDANSETRON HCL 4 MG/2 ML VIAL IV ONE (09:00)
[2018-11-20] MEDS ORDERED: AZITHROMYCIN 500MG/ 250ML 250 ML IV ONE (09:00)
[2018-11-20] MEDS ORDERED: FUROSEMIDE 40 MG/4 ML VIAL IV ONE ×2 (09:00→12:45)
[2018-11-20] MEDS ORDERED: MORPHINE SULFATE 4 MG/ML SYR/VIAL IV ONE (09:00)
[2018-11-20] MEDS ORDERED: cefTRIAXone 1GM/50ML D5W 50 ML IV ONE (09:00)
[2018-11-20 09:11] LABS: Basophils # (auto) 0.1 uL; Basophils % (auto) 0.6 % (0.0-2.0); Eosinophils # (auto) 0.1 uL; Eosinophils % (auto) 0.7 % (0.0-7.0); Hematocrit 41.2 % (36.0-46.0); Hemoglobin 13.2 g/dL (12.2-16.2); Lymphocytes # (auto) 6.7 uL; Lymphocytes % (auto) 38.2 % (10.0-50.0); Mean Corpuscular Hemoglobin 29.9 pg (28.0-32.0); Mean Corpuscular Volume 93.6 fL (80.0-100.0); Monocytes # (auto) 0.8 uL; Monocytes % (auto) 4.5 % (0.0-12.0); Neutrophils # (auto) 9.8 uL; Platelet Count (auto) 322 10^3/uL (140-450); Red Blood Cells 4.41 10^6/uL (4.0-5.20); Red Cell Distribution Width 15.6 % (11.8-14.3); White Blood Cell 17.5 10^3/uL (4.4-10.8)
[2018-11-20] MEDS ORDERED: SUCCINYLCHOLINE CHLORIDE 20 MG/ML 10ML VIAL IV ONE ×2 (09:16→10:45)
[2018-11-20] MEDS ORDERED: ETOMIDATE (2MG/ML) 20ML VIAL IV ONE ×2 (09:16→10:45)
[2018-11-20] MEDS ORDERED: NOREPINEPHRINE 8 MG/250ML KIT 250 ML IV ONE (09:21)
[2018-11-20] MEDS ORDERED: MIDAZOLAM DRIP 50 mg/50mL 50 ML IV ONE (09:25)
[2018-11-20 09:30] LABS: INR < 0.93 (0.9-1.15); Partial Thromboplastin Time 21.8 sec (23.64-32.05)
[2018-11-20] MEDS: MIDAZOLAM DRIP 50 mg/50mL 50 ML IV SCH ×2 (09:30→22:48)
[2018-11-20 09:34] LABS: Albumin 3.3 g/dL (3.4-5.0); BUN/Creatinine Ratio 21.2; Calcium 9.4 mg/dL (8.5-10.1); Magnesium 2.4 mg/dL (1.6-2.6); Potassium 3.2 mmol/L (3.5-5.1)
[2018-11-20 09:36] LABS: Lactic Acid w/Reflex 7.9 mmol/L (0.4-2.0)
[2018-11-20 09:39] LABS: Bilirubin, Total 0.4 mg/dL (0.2-1.0); Total Protein 7.2 g/dL (6.4-8.2)
[2018-11-20 09:55] LABS: Urine WBC None Seen /hpf (0 - 5)
[2018-11-20] MEDS ORDERED: MIDAZOLAM HCL 1MG/1ML-2 ML VIAL ONE ×2 (10:10→13:47)
[2018-11-20] MEDS ORDERED: fentaNYL CITRATE 100 MCG/2 ML VL ONE ×2 (10:10→13:47)
[2018-11-20] MEDS ORDERED: LIDOCAINE 2%HCL (LOCAL ANESTH.) INJ 20ML MDV ONE ×2 (10:11→13:55)
[2018-11-20 10:25] LABS: Urine Bacteria NONE SEEN /hpf (None Seen); Urine Blood Negative /uL (Negative); Urine Specific Gravity 1.011 (1.001-1.035)
[2018-11-20] MEDS ORDERED: MORPHINE SULF INJ 2 MG/ML SYRINGE 1ML IV PRN (11:15)
[2018-11-20] MEDS ORDERED: NITROGLYCERIN 0.4 MG SL TAB SL PRN (11:15)
--- NOTE | 2018-11-20 11:23 | NUR ---
RECEIVED REPORT BILL FROM CUSTOMER SUPPORT EXECUTIVE PT COMING TO [facility]/ ICU STATUS PENDING TO BE SEEN BY DR. MCQUEEN. PT WAS SEEN BY CUSTOMER SUPPORT EXECUTIVE TO GET A CAROTID ARTERY CENTRAL LINE REMOVED.
--- NOTE | 2018-11-20 11:25 | NUR ---
RECEIVED PT FROM CONTRACTS SPECIALIST INTUBATED SEDATED ON 5 MG OF VERSED 8.0 ETT SECURED AT 23 CM AT THE LIP, PT HAVING LARGE WHITE FOAMY FROTHY SECRETIONS. PT HAS RT CAROTID SWELLING FROM WHERE A RT TLC WAS TAKEN OFF. SITE NO NO ACTIVE BLEEDING AT THE TIME. DRESSING IS CLEAN & DRY. VITAL SIGNS STABLE, PT AFEBRILE. PT HAS EKG WITH SOME ST ELEVATION, PT HAS ALREADY BEEN SEEN BY THE SENIOR VICE PRESIDENT FOR [facility] CAROTID ARTERY. PT STILL PENDING TO BE SEEN BY ED MD TO COMPLETE ADMISSION. DISCUSSED POC WITH PT'S . PT'S IS WAITING TO SPEAK WITH ADMITTING MD.
[2018-11-20] MEDS: fentaNYL Drip 2500mCg/250mlNS 250 ML IV SCH ×2 (12:28→21:00)
--- NOTE | 2018-11-20 12:30 | NUR ---
MD ROUNDING ON PT DR. JAUREGUI IN TO SEE PT HE ASSESSED PT AND HE SPOKE TO PT'S , HE DISCUSSED POC WITH PT'S AND HE ALSO CALLED DR. MORGAN TO REQUEST FOR HIM TO TAKE PT TO OBSTETRICS GYN PHYSICIAN. AT THAT TIME I NOTIFIED DR. JAUREGUI OF CRITICAL TROPONIN OF 8.31 AND STARTED PRINTING OUT THE CONSETS FOR HEART CRATERIZATION FOR PT'S SPOUSE TO SIGN.
[2018-11-20] MEDS ORDERED: PIPERACILLIN-TAZOB 2.25GM 50 ML IV ONE (12:45)
[2018-11-20] MEDS ORDERED: ASPirin 81 mg TAB PO ONE (12:45)
[2018-11-20] MEDS: ASPirin 81 mg TAB PO SCH (12:58)
[2018-11-20] MEDS ORDERED: ANGIOMAX 250 MG VIAL IV ONE (13:47)
[2018-11-20] MEDS ORDERED: SODIUM CHL 0.9% 0 ML ONE (13:47)
--- NOTE | 2018-11-20 14:11 | NUR ---
PT TAKEN TO OPTOMETRY DOCTOR VIA BED WITH OPTOMETRY DOCTOR CREW WITH CARDIAC MONITORING ACCOMPANIED BY RT.
--- NOTE | 2018-11-20 14:15 | NUR ---
TRANSPORTED PT TO STONE BELT SANDER AT THIS TIME. MANUALLY VENTILATED PT WITH 100% FIO2 OFFICE EQUIPMENT TECHNICIAN AT BEDSIDE. PEEP VALVE ATTACHED TO AMBUBAG. NO INCIDENT REPORTED. VENT SET UP AT [facility]. SPO2 93%, HR 100 WITH GOOD CHEST RISE OBSERVED. WILL CONTINUE TO MONITOR PT.
[2018-11-20] MEDS ORDERED: DOBUTamine 1000MCG/ML 250 ML IV ONE (14:43)
[2018-11-20] MEDS ORDERED: FUROSEMIDE 20 MG/2 ML VIAL ONE (15:31)
--- NOTE | 2018-11-20 16:53 | NUR ---
ICU TRANSFER PT TRANSFERRED TO ROOM 111, STATUS POST LEFT HEART CATH. IABP INSERTED TO RIGHT GROIN, NO BLEEDING OR HEMATOMA NOTED. DRESSING IS CDI. IABP IS SET TO 1:1 AUGMENTATION, AUTO TRIGGER. VEGA TO GRAVITY DRAINING YELLOW URINE. BILATERAL RADIAL AND PEDAL PULSES 2+, EQUAL, AND EXTREMITIES COOL TO TOUCH. CAP REFILL ON BILATERAL LE IS >3. INTUBATED WITH SIZE 8, 23 AT THE LIP. VENT SETTINGS: AC RATE 14, TV 550, FI02 70%, PEEP 8.
--- NOTE | 2018-11-20 19:00 | NUR ---
Initial Assessment Patient received laying on bed on mechanical ventilation and sedation. Patient is sedated with Versed at 10mg/min and is at -4 RASS. RN will titrate down on Versed for goal of -3 RASS. Ventilator plugged into red outlet, Ambu bag at bedside, oral care and suction rendered. PERRL intact and brisk. Hypoactive cough and gag present. Right neck dressing has old blood but no fresh blood present-RN will continue to monitor for any s/s of bleeding. Abd soft and round. Right groin IABP site present with dressing CDI-on 1:1 augmentation. Maintaining goal of 80 means and over [address] elevated on monitor which is unchanged since admission to ICU-no ectopy noted. No bleeding, ecchymosis, or hematoma present. Right groin TLC intact and patent x3 ports-running multiple IV infusions-refer to IV spreadsheet for titration specifics. F/C intact and draining clear/yellow urine to gravity. Neurovascular status intact with strong palpable distal pulses x4 extremities, skin cool to touch, and BLE capillary refill sluggish and BUE capillary refill brisk. Bed in lowest position, side rails up, bed brakes set, all alarms audible, in direct view of nurses station. Continue close monitoring.
--- NOTE | 2018-11-20 19:06 | NUR ---
Hospitalist paged re: potassium and glucose levels. Waiting for call back.
[2018-11-20] MEDS: PIPERACILLIN-TAZOB 2.25GM 50 ML IV SCH ×2 (19:12→23:53)
--- NOTE | 2018-11-20 19:25 | NUR ---
Hospitalist called back Informed Dr. Glaser of patient's lab values. He ordered: -administer 40meq Potassium IV x1 -start patient on Q6H mild scale SSI and Accuchecks starting 0000 -Re-check potassium with AM labs RN performed TORB and verified orders to be correct. No additional orders received.
[2018-11-20] MEDS ORDERED: POTASSIUM CHL 20MEQ/100ML 200 ML IV ONE (19:35)
[2018-11-20] MEDS: POTASSIUM CHL 20MEQ/100ML 100 ML IV SCH ×2 (19:40→21:15)
--- NOTE | 2018-11-20 21:00 | NUR ---
Fentanyl initiation Patient now moving bilateral hands toward ETT and has facial grimacing. RN attempted to re-orient patient and non-pharmacological pain measures for comfort but patient remains at risk of pulling out ETT and appears to be in pain. No PRN pain medication ordered. Patient started on fentanyl gtt per protocol/MD order. Patient tolerating well.
[2018-11-20] MEDS: NOREPINEPHRINE 8 MG/250ML KIT 250 ML IV SCH (21:11)
[2018-11-20] MEDS: ENOXAPARIN SOD 40 MG/0.4 ML SYRINGE SC SCH (21:30)
--- NOTE | 2018-11-20 22:00 | NUR ---
Raiology call RN called radiology to inquire about interpretation of the CXR. consultant technology states they will get in touch with radiologist to read XRAY.
[2018-11-20] MEDS ORDERED: ATOR10TA PO (22:14)
[2018-11-20] MEDS ORDERED: POTA10TA51 PO (22:14)
[2018-11-20] MEDS ORDERED: FURO40TA4 PO (22:14)
[2018-11-20] MEDS ORDERED: CHL4PW PO (22:14)
--- NOTE | 2018-11-20 22:30 | NUR ---
24 hour urine sample RN called medical laboratory assistant to inform of new order for 24 hour urine sample. She states she will have tax preparer bring the urine specimen collection jug.
[2018-11-20] MEDS: InsuLIN REG 1unit/0.01ml Soln (100units/ml) SC SCH (23:36)
[2018-11-20] MEDS: ACCU-CHEK COMFORT CURVE STRIP VI SCH (23:36)
[2018-11-21] VITALS (36 sets, daily range): BP systolic 94–118; BP diastolic 41–73
--- NOTE | 2018-11-21 | NUR ---
Cooling measures Temperature 100.2 oral. Cooling measures intact. Patient tolerating well with no s/s of shivering or distress noted.
--- NOTE | 2018-11-21 01:00 | NUR ---
Ongoing assessment Patient now at -3 RASS and is not showing any s/s of pain or discomfort. Patient being turned, all bony prominences and heels offloaded with pillows, skin is clean and dry. Maintaining IABP precautions (not flexing hips, bending knees, or crossing legs). Patient in reverse trendelenberg position. Oral care and suction being performed. Neurovascular status remains intact and unchanged with strong palpable distal pulses. Cooling measures remain intact with no shivering or distress noted. IABP insertion site remains benign. Good urine output noted. All fall and safety precautions are intact. Continue close monitoring.
--- NOTE | 2018-11-21 02:30 | NUR ---
IV removal IV to left hand DC'd with clean sterile technique, catheter fully intact. dressing applied to site. No bleeding noted. Patient tolerated well.
--- NOTE | 2018-11-21 03:30 | NUR ---
Bed bath/linen change Patient given complete CHG bath,all linens and gowns changed. Skin re-assessed for any changes and none noted. Patient tolerated well. Optifoam gentle adhesive dressing remains CDI to sacral area to prevent friction and shear.
[2018-11-21 03:58] LABS: Basophils # (auto) 0 uL; Basophils % (auto) 0.2 % (0.0-2.0); Eosinophils # (auto) 0 uL; Hematocrit 39.7 % (36.0-46.0); Hemoglobin 13.2 g/dL (12.2-16.2); Lymphocytes # (auto) 1.1 uL; Lymphocytes % (auto) 6.1 % (10.0-50.0); Mean Corpuscular Hemoglobin 30.4 pg (28.0-32.0); Mean Corpuscular Hgb Conc. 33.1 g/dL (32.0-36.0); Mean Corpuscular Volume 91.8 fL (80.0-100.0); Monocytes # (auto) 0.9 uL; Monocytes % (auto) 4.9 % (0.0-12.0); Neutrophils # (auto) 16.5 uL; Neutrophils % (auto) 88.8 % (37.0-80.0); Nucleated Red Blood Cells % 0.2 %; Platelet Count (auto) 251 10^3/uL (140-450); Red Blood Cells 4.32 10^6/uL (4.0-5.20); Red Cell Distribution Width 15.4 % (11.8-14.3); White Blood Cell 18.6 10^3/uL (4.4-10.8)
[2018-11-21 04:58] LABS: Albumin 2.6 g/dL (3.4-5.0); Calcium 8.9 mg/dL (8.5-10.1); Potassium 4.7 mmol/L (3.5-5.1)
[2018-11-21 05:01] LABS: BUN/Creatinine Ratio 19.4; Bilirubin, Total 0.5 mg/dL (0.2-1.0); Total Protein 6.4 g/dL (6.4-8.2)
[2018-11-21] MEDS: InsuLIN REG 1unit/0.01ml Soln (100units/ml) SC SCH ×3 (05:40→17:18)
[2018-11-21] MEDS: ACCU-CHEK COMFORT CURVE STRIP VI SCH ×3 (05:40→17:19)
[2018-11-21] MEDS: PIPERACILLIN-TAZOB 2.25GM 50 ML IV SCH ×3 (05:40→17:19)
[2018-11-21] MEDS: DOBUTamine 1000MCG/ML 250 ML IV SCH ×3 (05:41→18:20)
--- NOTE | 2018-11-21 07:00 | NUR ---
Report given No changes or incidents to report. Neurovascular status remains intact with palpable distal pulses x4 extremities. IABP site remains benign with no s/s of bleeding, bruising, or hematoma present. Central line remains free of any s/s of infiltration or phlebitis. Care endorsed to day shift RN.
--- NOTE | 2018-11-21 08:00 | NUR ---
Opening shift note Report received from security shift manager RN, morning assessment performed and documented. Patient laying in bed, mechanically ventilated and sedated. PERRL intact and brisk. Hypoactive cough and gag present. Right neck dressing clean, dry and intact. Right groin IABP site intact with dressing CD -on 1:1 augmentation, no bleeding, redness or swelling noted to site. ST elevated on monitor noted which is unchanged since admission to ICU with no ectopy. Peripheral pulses present with strong palpable radial pulses bilaterally to touch and strong lower extremity pulses using doppler. B/L upper extremity capillary refill brisk and B/L lower extremity capillary refill sluggish, skin cool to touch on all extremities. Cee catheter intact and draining clear/yellow urine to gravity. Fall and safety precautions in place. Will continue to monitor during shift.
--- NOTE | 2018-11-21 08:27 | NUR ---
24 HR URINE COLLECTION CORRECTION CONTACT LAB REGARDING 24 HOUR URINE COLLECTION. VERIFIED THAT URINE MUST BE PLACED IN ICE, THEREFORE URINE COLLECTION MUST BE RESTARTED. WILL RECEIVING NEW COLLECTION CANISTER. VEGA CATHETER PLACED IN ICE IN MEANTIME WHILE LAB BRINGS NEW CANISTER.
[2018-11-21] MEDS: MIDAZOLAM DRIP 50 mg/50mL 50 ML IV SCH ×2 (08:57→18:56)
[2018-11-21] MEDS: FUROSEMIDE 40 MG/4 ML VIAL IV SCH (10:35)
[2018-11-21] MEDS: ENOXAPARIN SOD 40 MG/0.4 ML SYRINGE SC SCH ×2 (10:35→22:00)
--- NOTE | 2018-11-21 11:20 | NUR ---
FAMILY AT BEDSIDE PATIENT'S SPOUSE HASEEB AT BEDSIDE AND UPDATED ON PATIENT'S STATUS. THIS NURSE NOTED PATIENT TO BE FACIAL GRIMACING AND ATTEMPTING TO REACH AT ETT WITH LEFT HAND. SEDATION INCREASED. PATIENT'S SPOUSE AWARE AND STATED HE UNDERSTOOD THAT PATIENT MAY BE GETTING AGITATED. YENNY SITTING AT PATIENT'S BEDSIDE.
--- NOTE | 2018-11-21 11:36 | NUR ---
NUTRITION CONSULT/ASSESSMENT NOTES Please refer to link notes of nutrition screen form filed under the intervention section of the plan of care for further details. Est. Needs: 1550 kcal to 1900 kcal (20-25 kcal/kgBW), 61 gms to 77 gms pro (0.8-1.0 gms/kgBW). Will continue to monitor pertinent labs and reassess nutrient need prn Thank you for this consult. Addendum: 11/21/18 at [address] Amended: Links added.
--- NOTE | 2018-11-21 14:28 | NUR ---
CONTACT PHARMACY REGARDING PENDING PROTONIX DUE EARLIER THIS MORNING. PHARMACY STATED THEY WOULD SEND TO UNIT, PENDING RECEIPT FOR ADMINISTRATION, DR MA AWARE.
[2018-11-21] MEDS: LINEZOLID 600MG/300ML 300 ML IV SCH (14:32)
--- NOTE | 2018-11-21 14:32 | NUR ---
PAGED CARDIOLOGY DR MORGAN TO NOTIFY OF AUGMENTED PRESSURE IN THE HIGH 80'S TO 90'S AND HAVING TO INCREASE LEVOPHED TO 26 MCG TO KEEP AUG PRESSURE OVER 100 ORDERED. AWAITING RESPONSE.
[2018-11-21 14:43] LABS: Lactic Acid w/Reflex 2.8 mmol/L (0.4-2.0)
--- NOTE | 2018-11-21 15:10 | NUR ---
CALL RECEIVED FROM NEPHROLOGY/URINE SENT DR ALVAREZ UPDATED ON PATIENT'S STATUS AND REASON FOR CONSULT. ORDERS RECEIVED AND WILL BE CARRIED OUT. URINE SENT TO LAB.
--- NOTE | 2018-11-21 15:40 | NUR ---
WOUND CARE NOTE: Wound care consult received for low Arjun score. Patient is a 78yo female admitted for respiratory failure. Patient with a history of hypertension, chronic kidney disease, hyperlipidemia, and cervical cancer. Patient is seen in ICU with bedside RN, Cintia. Patient is currently intubated and on an IABP. Last Arjun score is 14. No open wounds noted. Bilateral lower extremities are mottled and cool to touch. Heels blanching and are off loaded with pillows. RECOMMENDATIONS: Dietary consult; turn q2hrs; Nursing to cleanse buttocks with mild soap and water, pat dry, apply ZGUARD BID/PRN soiling, may apply sacral OPTIFOAM GENTLE for friction/shear prevention; wound care team to follow.
--- NOTE | 2018-11-21 15:53 | NUR ---
FAMILY/ULTRASOUND AT BEDSIDE PATIENT'S SPOUSE YENNY UPDATED ON PATIENT'S STATUS AND HOSPITALIST/NEPHROLOGY ORDERS. YENNY VERBALIZED UNDERSTANDING. WET POUR MIXER AT BEDSIDE.
[2018-11-21 16:24] LABS: Urine Bacteria FEW /hpf (None Seen); Urine Blood 1+ /uL (Negative); Urine Mucus FEW (None Seen); Urine Specific Gravity 1.013 (1.001-1.035); Urine WBC 2 /hpf (0 - 5)
--- NOTE | 2018-11-21 16:43 | NUR ---
CARDIOLOGY AT BEDSIDE DR MORGAN UPDATED ON PATIENT'S STATUS, DRIPS, VS, URINE OUTPUT AND PATIENT'S SPOUSE CONCERNS. DISCUSSED DIAGNOSIS WITH YENNY, PATIENT'S AND PLAN OF CARE. ORDERS TO CONSULT ONCOLOGY FOR BIOPSY RESULTS. YENNY VERBALIZED UNDERSTANDING.
--- NOTE | 2018-11-21 16:45 | NUR ---
HEMATOLOGY/ONCOLOGY CONSULT CALLED SPOKE WITH FLOR - CONSULT PLACED, FAMILY AWARE.
[2018-11-21] MEDS: SODIUM CHLORIDE 0.9% 1,000 ML IV SCH (16:53)
[2018-11-21 16:57] LABS: Sodium Urine 70 mmol/L (40-220)
[2018-11-21 16:59] LABS: Creatinine, Urine 35 mg/dL (30.0-125.0)
--- NOTE | 2018-11-21 17:15 | NUR ---
PULMONOLOGY AT BEDSIDE DR BENITEZ UPDATED ON PATIENT'S STATUS AND REASON FOR CONSULT. DR BENITEZ DISCUSSED PLAN OF CARE WITH PATIENT'S SPOUSE YENNY AT BEDSIDE - YENNY VERBALIZED UNDERSTANDING. NO VERBAL ORDERS GIVEN AT THIS TIME.
[2018-11-21] MEDS: PANTOPRAZOLE 40 MG/10 ML VIAL INJ IV SCH (17:21)
--- NOTE | 2018-11-21 17:22 | NUR ---
PROTONIX NOT ADMINISTERED PER PHARMACY, "SHOULD RECEIVE TONIGHT AND WILL DELIVER FOR ADMINISTRATION TOMORROW". DR MA AWARE.
[2018-11-21] MEDS: NOREPINEPHRINE 8 MG/250ML KIT 250 ML IV SCH (18:20)
--- NOTE | 2018-11-21 18:50 | NUR ---
Respiratory note: RECEIVED PT ON VENT V9, VENT CONNECTED TO RED OUTLET AND O2 SOURCE. ALARMS ARE SET AND AUDIBLE. AMBU BAG AND MASK AT BEDSIDE. BS ARE FINE COURSE IN BILATERAL BASES, SXD VIA ETT FOR SCANT CLEAR/ WHITE. WILL CONTINUE TO MONITOR, RT NAME AND PAGER ASSIGNMENT WRITTEN ON PTS ROOM BOARD.
--- NOTE | 2018-11-21 20:03 | NUR ---
Respiratory note: ROUTINE VENT CHECK NO CHANGES MADE AT THIS TIME WILL CONTINUE TO MONITOR Q2H.
--- NOTE | 2018-11-21 20:07 | NUR ---
Respiratory note: SPOKE TO DR BENITEZ REGARDING POSSIBILITY OF TITRATING PEEP. DR BENITEZ STATES LEAVE THE PEEP, PT CAN GO STRAIGHT TO CPAP WITH PEEP OF 8CMH2O. NO NEW ORDERS GIVEN AT THIS TIME. WILL ATTEMPT TO TITRATE FIO2 DURING MY SHIFT. FIO2 RIGHT NOW VIA VENT SET AT 40%. WILL CONTINUE TO MONITOR.
--- NOTE | 2018-11-21 22:09 | NUR ---
Respiratory note: AT BEDSIDE FOR ROUTINE VENT CHECK. NO VENT CHANGES OR SXD DONE AT THIS TIME WILL CONTINUE TO MONITOR Q2H.
[2018-11-21] MEDS ORDERED: AMIODARONE HCL 900 MG IV ONE (22:33)
[2018-11-21] MEDS ORDERED: AMIODARONE HCL (50 MG/ ML) 3 ML VIAL IV ONE (22:34)
[2018-11-22] VITALS (33 sets, daily range): BP systolic 92–124; BP diastolic 39–77
--- NOTE | 2018-11-22 00:03 | NUR ---
Respiratory note: AT BEDSIDE FOR ROUTINE VENT CHECK. FIO2 TITRATED TO 35%. BEAU GARCIA MADE AWARE OF O2 CHANGE. NO SXD DONE AT THIS TIME WILL CONTINUE TO MONITOR Q2H.
--- NOTE | 2018-11-22 02:16 | NUR ---
Respiratory note: AT BEDSIDE FOR ROUTINE VENT CHECK. SXD FOR SCANT CLEAR/WHITE. BEAU GARCIA AT BEDSIDE. WILL CONTINUE TO MONITOR Q2H.
[2018-11-22] MEDS: LINEZOLID 600MG/300ML 300 ML IV SCH ×2 (03:00→14:59)
[2018-11-22] MEDS: SODIUM CHLORIDE 0.9% 1,000 ML IV SCH ×3 (03:45→20:00)
--- NOTE | 2018-11-22 04:18 | NUR ---
Respiratory note: END OF SHIFT VENT CHECK. HME AND SX CATHETER CHANGED AT THIS TIME. WILL HAVE DAY SHIFT RT CONTINUE POC.
[2018-11-22 04:19] LABS: Basophils # (auto) 0.1 uL; Basophils % (auto) 0.6 % (0.0-2.0); Eosinophils # (auto) 0 uL; Eosinophils % (auto) 0.2 % (0.0-7.0); Hematocrit 34.7 % (36.0-46.0); Hemoglobin 11.6 g/dL (12.2-16.2); Lymphocytes # (auto) 1.4 uL; Lymphocytes % (auto) 9.7 % (10.0-50.0); Mean Corpuscular Hemoglobin 30.1 pg (28.0-32.0); Mean Corpuscular Hgb Conc. 33.5 g/dL (32.0-36.0); Mean Corpuscular Volume 89.8 fL (80.0-100.0); Monocytes # (auto) 1.3 uL; Monocytes % (auto) 9.1 % (0.0-12.0); Neutrophils # (auto) 11.6 uL; Neutrophils % (auto) 80.4 % (37.0-80.0); Platelet Count (auto) 183 10^3/uL (140-450); Red Blood Cells 3.87 10^6/uL (4.0-5.20); White Blood Cell 14.4 10^3/uL (4.4-10.8)
[2018-11-22 04:54] LABS: Albumin 2.3 g/dL (3.4-5.0); Calcium 8.3 mg/dL (8.5-10.1)
[2018-11-22 04:59] LABS: Bilirubin, Total 0.8 mg/dL (0.2-1.0); Total Protein 5.7 g/dL (6.4-8.2)
[2018-11-22] MEDS ORDERED: AMIODARONE HCL 150 MG in D5W 5% 100 ML IV ONE (05:00)
[2018-11-22] MEDS ORDERED: AMIODARONE HCL 900 MG in DEXTROSE 500 ML IV SCH ×2 (05:03→11:03)
[2018-11-22] MEDS: DOBUTamine 1000MCG/ML 250 ML IV SCH (05:45)
[2018-11-22] MEDS: PIPERACILLIN-TAZOB 2.25GM 50 ML IV SCH ×5 (06:00→23:35)
[2018-11-22] MEDS: InsuLIN REG 1unit/0.01ml Soln (100units/ml) SC SCH ×5 (06:25→23:36)
[2018-11-22] MEDS: ACCU-CHEK COMFORT CURVE STRIP VI SCH ×5 (06:26→23:34)
--- NOTE | 2018-11-22 07:20 | NUR ---
Respiratory note: RECEIVED PATIENT ON V9 ESPRIT VENT ORALLY INTUBATED WITH AN 8.0 ETT SECURED VIA ROSA AT THE 23CM MARKING AT THE LIP, AND MECHANICALLY VENTILATED WITH THE CHARTED SETTINGS. SPO2 100%, LUNG SOUNDS CLEAR T/O, NO SECRETIONS WHEN SUCTIONED. SKIN IS WARM/DRY TO THE TOUCH AND IS INTACT NEAR ROSA SITE. THERE IS A NGT PLACED IN THE RIGHT NARE AND SECURED TO THE ETT. NON PITTING EDEMA NOTED IN BILATERAL UPPER EXTREMITIES. THERE IS A RIGHT FEMORAL IABP PLACED, NO OTHER ADVANCE ACCESS LINES NOTED. AM CXR ASSESSED AND IT SHOWS ETT IN SATISFACTORY POSITION SITTING APPROX 4CM ABOVE THE RYAN, NO INDICATION TO ADJUST TUBE AT THIS TIME. PATIENT IS UNRESPONSIVE TO BOTH VERBAL/TACTILE STIMULI AND IS SEDATED ON VERSED AND FENTANYL DRIPS. SHE IS RESTING COMFORTABLY AND TOLERATING VENT WELL, NO CHANGES MADE. VENT PLUGGED INTO RED OUTLET AND ALL ALARMS ARE SET AND AUDIBLE. WILL CONTINUE TO ASSESS PATIENT WELL VENTILATOR FUNCTION.
--- NOTE | 2018-11-22 08:00 | NUR ---
Opening shift note/Pulmonology at bedside Report received from concrete laborer RN, morning assessment performed and documented. Patient laying in bed, mechanically ventilated and sedated. PERRL intact and brisk. Hypoactive cough and gag present. Right neck dressing clean, dry and intact. Right groin IABP site intact with dressing CD - on 1:1 augmentation, no bleeding, redness or swelling noted to site. ST elevated on monitor noted which is unchanged since admission to ICU. Peripheral pulses present with strong palpable radial pulses bilaterally to touch and strong lower extremity pulses using doppler. B/L upper extremity capillary refill brisk and B/L lower extremity capillary refill sluggish, skin cool to touch on all extremities. Cee catheter intact and draining clear with sediment/yellow urine to gravity. Skin assessment performed and noted non-blanchable redness to sacrum with optifoam present. Skin tear to left forearm observed, wound care performed, pictures taken and new wound care order placed per protocol, charge nurse aware. Fall and safety precautions in place. Will continue to monitor during shift. Addendum: 11/22/18 at 1131 by Cintia Kam RN Dr Campuzano at bedside, updated on patient's status. No verbal orders received at this time.
[2018-11-22] MEDS ORDERED: POTASSIUM EFFERVESENT TAB 25 MEQ NG ONE (09:30)
--- NOTE | 2018-11-22 09:30 | NUR ---
NEPHROLOGY AT BEDSIDE DR ALVAREZ UPDATED ON PATIENT'S STATUS, DRIPS AND LABS. ORDERS RECEIVED AND WILL BE CARRIED OUT. DR ALVAREZ ALSO ORDERED LASIX TO BE HELD TODAY.
[2018-11-22] MEDS: FUROSEMIDE 40 MG/4 ML VIAL IV SCH (10:00)
[2018-11-22] MEDS: POTASSIUM CHL 20MEQ/100ML 100 ML IV SCH ×2 (10:12→12:45)
[2018-11-22] MEDS: ASPirin 81 mg TAB PO SCH (10:13)
[2018-11-22] MEDS: PANTOPRAZOLE 40 MG/10 ML VIAL INJ IV SCH (10:13)
[2018-11-22] MEDS: ENOXAPARIN SOD 40 MG/0.4 ML SYRINGE SC SCH ×2 (10:14→21:43)
[2018-11-22] MEDS: MAGNESIUM SULFATE 1GM/100ML 100 ML IV SCH ×2 (12:01→13:50)
[2018-11-22 12:22] LABS: Lactic Acid w/Reflex 3.2 mmol/L (0.4-2.0)
[2018-11-22] MEDS: fentaNYL Drip 2500mCg/250mlNS 250 ML IV SCH (12:28)
--- NOTE | 2018-11-22 13:25 | NUR ---
HOSPITALIST/CARDIOLOGY/FAMILY AT BEDSIDE 1255 - CARDIOLOGY AT BEDSIDE: THIS NURSE RETURNED FROM [facility] - COVERING CHARGE NURSE FELIX NOTIFIED THAT DR MORGAN ROUNDED ON PATIENT AND DISCONTINUED AMIODARONE AND DOBUTAMINE. ORDERED DISCONTINUED BY BEAU W[place]. WILL MONITOR PATIENT FOR VS CHANGES. HOSPITALIST AT BEDSIDE: DR VILLA UPDATED ON PATIENT'S STATUS, LABS AND DRIPS. DR VILLA AWARE OF DR MORGAN'S RECOMMENDATIONS AND DR ALVAREZ'S ELECTROLYTE REPLACEMENT. DR VILLA DISCUSSED PLAN OF CARE WITH PATIENT'S SPOUSE YENNY AND YENNY VERBALIZED UNDERSTANDING. 1325 - MULTIPLE FAMILY MEMBERS AT BEDSIDE. Addendum: 11/22/18 at 1929 by Cintia Kam RN DR VILLA AWARE OF PENDING ABD/PENDING CT, WILL RESCHEDULE ONCE BALLOON PUMP IS REMOVED PER DR MORGAN SCHEDULED TOMORROW 11/23/18.
--- NOTE | 2018-11-22 13:30 | NUR ---
WOUND CARE NOTE: IN TO SEE PATIENT AT THIS TIME PER NURSE REQUEST. PATIENT WAS NOTED THIS AM TO HAVE A DARK RED NON BLANCHABLE AREA TO HER MEDIAL SACRUM, AND A SMALL SKIN TEAR TO THE RIGHT FOREARM. PATIENT REMAINS INTUBATED, SEDATED. BEDSIDE NURSE PHOTOGRAPHED WOUNDS THIS AM FOR REFERENCE. PATIENT TURNED TO RIGHT SIDE. SHE IS NOTED TO HAVE A DARK RED NON BLANCHABLE AREA TO THE MEDIAL SACRUM. THERE APPEARS TO BE SOME IMPROVEMENT FROM THIS AM. WOUND IS VERY DARK RED, NON BLANCHING. SKIN REMAINS INTACT. REAPPLIED OPTIFOAM GENTLE SACRAL DRESSING TO AREA. ORDERED SPECIALTY AIR BED AT THIS TIME. PATIENT TO BE PLACED, PENDING DELIVERY BY OCTAVIA ALDANA. SKIN TEAR TO THE RIGHT FOREARM IS VERY SMALL, MEASURING 0.5 X 0.5 CM, PARTIAL THICKNESS. THERAHONEY, OPTIFOAM GENTLE DRESSING APPLIED. NEW WOUND PHOTOS TAKEN AT THIS TIME FOR REFERENCE. RECOMMEND: SPECIALTY AIR MATTRESS, NO MASSAGING OF DARK RED/MAROON SKIN TO THE SACRUM, SIDE TO SIDE ONLY POSITIONING, Q 3 DAY PRN DRESSING CHANGE TO SKIN TEAR ON RIGHT FOREARM, CONTINUATION WITH ALL OTHER WOUND CARE ORDERS PREVIOUSLY PRESCRIBED BY MD. WOUND CARE TEAM WILL CONTINUE TO MONITOR. Addendum: 11/22/18 at 1806 by Zenaida Antunez RN Amended: Links added.
--- NOTE | 2018-11-22 19:30 | NUR ---
Initial Assessment Patient received laying on bed on mechanical ventilation and sedation. Patient is sedated with Versed at 5mg/min and Fentanyl at 50mcg/hour. Pt is at -3 RASS. Ventilator plugged into red outlet, Ambu bag at bedside, oral care and suction rendered. PERRL intact and brisk. Normoactive cough and gag present. Left nare NGT clamped. RN verified proper placement via auscultation with air bolus. Right neck dressing CDI-RN will continue to monitor for any s/s of bleeding. Abd soft and round. Right groin IABP site benign with no bleeding, bruising, or hematoma present. On 1:1 augmentation. Using Levophed to maintain goal of augmented pressures greater than [address]'s orders. [address] elevated on monitor which is unchanged since admission to ICU-no ectopy noted. Right groin TLC intact and patent x3 ports-running multiple IV infusions-refer to IV spreadsheet for titration specifics. Optifoam gentle adhesive dressing CDI to sacral area with DTI present. Left arm dressing to skin tear is CDI. F/C intact and draining clear/yellow urine to gravity. SCD's intact to BLE. Neurovascular status intact with palpable distal pulses x4 extremities, skin cool to touch, and BLE capillary refill sluggish and BUE capillary refill brisk. Bed in lowest position, side rails up, bed brakes set, all alarms audible, in direct view of nurses station. Continue close monitoring.
--- NOTE | 2018-11-22 19:36 | NUR ---
RT NOTE RECEIVED PT INTUBATED AND ON VENT V9 ON STATED SETTINGS. VENT IS PLUGGED TO RED OUTLET. ALARMS ARE ON AND AUDIBLE AT NURSES STATION. AMBU BAG AT BEDSIDE AND CONNECTED TO O2 SOURCE. 8.0 ETT IS SECURED AT 23 TO THE [facility] WITH ANCHORFAST. BILATERAL BS ARE CLEAR/DIM, PT WAS SUCTIONED FOR SMALL RETURN. PT IS NOTED TO BE ON BALLOON PUMP 1:1. BEAU DOBSON AT BEDSIDE. CONT ORDERED. POX 100% Addendum: 11/22/18 at 2100 by Tana Brown RT Amended: Links added.
--- NOTE | 2018-11-22 20:14 | NUR ---
RT NOTE ROUTINE VENT CHECK DONE. PT INTUBATED AND ON VENT V9 ON STATED SETTINGS. VENT IS PLUGGED TO RED OUTLET. ALARMS ARE ON AND AUDIBLE AT NURSES STATION. AMBU BAG AT BEDSIDE AND CONNECTED TO O2 SOURCE. 8.0 ETT IS SECURED AT 23 TO THE [facility] WITH ANCHORFAST. PT IS NOTED TO BE ON BALLOON PUMP 1:1. BEAU DOBSON AT BEDSIDE. CONT ORDERED. POX 100% Addendum: 11/22/18 at 2100 by Tana Brown RT Amended: Links added.
--- NOTE | 2018-11-22 20:30 | NUR ---
Cooling measures Patient's temperature 100.0F. Cooling measures applied. Patient tolerating well with no shivering or distress noted.
--- NOTE | 2018-11-22 21:00 | NUR ---
CT Abd/Pelvis held due to MD order to wait until IABP pulled prior to taking patient to CT. Will endorse to day shift RN.
[2018-11-22] MEDS: NOREPINEPHRINE 8 MG/250ML KIT 250 ML IV SCH (21:13)
--- NOTE | 2018-11-22 21:30 | NUR ---
NGT retraction Per CXR report, NGT retracted by 4cm. Placement verified via auscultation with air bolus.
--- NOTE | 2018-11-22 22:15 | NUR ---
RT NOTE ROUTINE VENT CHECK DONE. PT INTUBATED AND ON VENT V9 ON STATED SETTINGS. VENT IS PLUGGED TO RED OUTLET. ALARMS ARE ON AND AUDIBLE AT NURSES STATION. AMBU BAG AT BEDSIDE AND CONNECTED TO O2 SOURCE. 8.0 ETT IS SECURED AT 23 TO THE [facility] WITH ANCHORFAST. PT IS NOTED TO BE ON BALLOON PUMP 1:1. BEAU DOBSON AT BEDSIDE. CONT ORDERED. POX 100% Addendum: 11/23/18 at 0138 by Tana Brown RT Amended: Links added.
--- NOTE | 2018-11-22 22:30 | NUR ---
Specialty mattress Patient transferred onto specialty air mattress without incident. Patient tolerated move well. Patient continues to be turned at least Q2H, all bony prominences and heels offloaded with pillows, and skin is being kept clean and dry.
[2018-11-23] VITALS (44 sets, daily range): BP systolic 86–142; BP diastolic 54–118
--- NOTE | 2018-11-23 00:56 | NUR ---
RT NOTE ROUTINE VENT CHECK DONE. PT INTUBATED AND ON VENT V9 ON STATED SETTINGS. VENT IS PLUGGED TO RED OUTLET. ALARMS ARE ON AND AUDIBLE AT NURSES STATION. AMBU BAG AT BEDSIDE AND CONNECTED TO O2 SOURCE. 8.0 ETT IS SECURED AT [address] [facility] WITH ANCHORFAST. PT IS NOTED TO BE ON BALLOON PUMP 1:1. CONT ORDERED. PT TEMP 99.9 POX 100% Addendum: 11/23/18 at 0136 by Tana Brown RT Amended: Links added.
--- NOTE | 2018-11-23 01:00 | NUR ---
Ongoing Assessment No changes or incidents to report. Patient remains resting in bed with no s/s of distress or pain, being repositioned q2h, all bony prominences and heels offloaded with pillows, skin is clean and dry. In reverse Trendelenburg position maintaining IABP precautions including not flexing hip, bending or crossing knees. IABP site remains benign with no bleeding, bruising, or hematoma present. PERRL remains intact, moves bilateral hands with equal strength intermittently. Good urine output noted. Neurovascular status intact with palpable distal pulses x4 extremities. Bed in lowest position, side rails up, bed brakes set, all vitals stable, in direct view of nurses station. Continue close monitoring.
--- NOTE | 2018-11-23 02:21 | NUR ---
RT NOTE ROUTINE VENT CHECK DONE. PT INTUBATED AND ON VENT V9 ON STATED SETTINGS. VENT IS PLUGGED TO RED OUTLET. ALARMS ARE ON AND AUDIBLE AT NURSES STATION. AMBU BAG AT BEDSIDE AND CONNECTED TO O2 SOURCE. 8.0 ETT IS SECURED AT 23 TO THE ORAL RIGHT WITH ANCHORFAST. ANCHORFAST WAS CHANGED WITHOUT INCIDENT, BEAU DOBSON NOTIFIED. HME AND INLINE SUCTION CHANGED WITHOUT INCIDENT. PT IS NOTED TO BE ON BALLOON PUMP 1:1. CONT ORDERED. PT TEMP 99.5 POX 98% Addendum: 11/23/18 at 0328 by Tana Brown RT Amended: Links added.
--- NOTE | 2018-11-23 02:30 | NUR ---
Hygiene Patient given CHG bath. All linens and gown changed. Skin re-assessed for any changes and none noted. Patient tolerated well.
--- NOTE | 2018-11-23 03:00 | NUR ---
IV removal IV to RFA DC'd with clean sterile technique, catheter fully intact. Pressure dressing applied to site. Patient tolerated well.No bleeding noted.
[2018-11-23] MEDS: LINEZOLID 600MG/300ML 300 ML IV SCH ×2 (03:16→14:58)
--- NOTE | 2018-11-23 04:00 | NUR ---
Dressing Right neck dressing taken off to assess site. Incision is well approximated and closed with no erythema or drainage. Left open to air.
--- NOTE | 2018-11-23 04:09 | NUR ---
RT NOTE ROUTINE VENT CHECK DONE. PT INTUBATED AND ON VENT V9 ON STATED SETTINGS. VENT IS PLUGGED TO RED OUTLET. ALARMS ARE ON AND AUDIBLE AT NURSES STATION. AMBU BAG AT BEDSIDE AND CONNECTED TO O2 SOURCE. 8.0 ETT IS SECURED AT 23 TO THE ORAL RIGHT WITH ANCHORFAST. PT IS NOTED TO BE ON BALLOON PUMP 1:1. CONT ORDERED. PT TEMP 99.3 POX 100% Addendum: 11/23/18 at 0428 by Tana Brown RT Amended: Links added.
[2018-11-23] MEDS: ACCU-CHEK COMFORT CURVE STRIP VI SCH ×4 (04:54→23:58)
[2018-11-23] MEDS: PIPERACILLIN-TAZOB 2.25GM 50 ML IV SCH ×3 (04:54→17:29)
[2018-11-23] MEDS: InsuLIN REG 1unit/0.01ml Soln (100units/ml) SC SCH ×4 (04:54→23:58)
[2018-11-23 04:57] LABS: Basophils # (auto) 0.1 uL; Basophils % (auto) 0.5 % (0.0-2.0); Eosinophils # (auto) 0 uL; Eosinophils % (auto) 0.3 % (0.0-7.0); Hematocrit 32.3 % (36.0-46.0); Hemoglobin 10.9 g/dL (12.2-16.2); Lymphocytes # (auto) 1.5 uL; Lymphocytes % (auto) 12.7 % (10.0-50.0); Mean Corpuscular Hemoglobin 30.3 pg (28.0-32.0); Mean Corpuscular Hgb Conc. 33.9 g/dL (32.0-36.0); Mean Corpuscular Volume 89.5 fL (80.0-100.0); Monocytes # (auto) 0.9 uL; Neutrophils # (auto) 9.2 uL; Neutrophils % (auto) 78.5 % (37.0-80.0); Platelet Count (auto) 186 10^3/uL (140-450); Red Blood Cells 3.61 10^6/uL (4.0-5.20); Red Cell Distribution Width 15.2 % (11.8-14.3); White Blood Cell 11.7 10^3/uL (4.4-10.8)
--- NOTE | 2018-11-23 04:58 | NUR ---
Report given to resident care assistant to assume care.
[2018-11-23 05:27] LABS: Potassium 3.2 mmol/L (3.5-5.1)
[2018-11-23 05:38] LABS: BUN/Creatinine Ratio 17.4; Bilirubin, Total 0.7 mg/dL (0.2-1.0); Calcium 8.6 mg/dL (8.5-10.1); Phosphorus 2.5 mg/dL (2.5-4.90); Total Protein 5.5 g/dL (6.4-8.2); Uric Acid 2.9 mg/dL (2.6-6.0)
[2018-11-23] MEDS: SODIUM CHLORIDE 0.9% 1,000 ML IV SCH (06:29)
--- NOTE | 2018-11-23 07:25 | NUR ---
Opening shift note/Hospitalist/wound care at bedside Report received from overnight stocker RN, morning assessment performed and documented. Patient laying in bed, mechanically ventilated and sedated. PERRL intact and brisk. Hypoactive cough and gag present. Right neck dressing removed by overnight stocker rn, area is clean and dry, no redness, drainage or swelling noted. Right groin IABP site intact with dressing clean and dry - on 1:1 augmentation, no bleeding, redness or swelling noted to site. ST elevated on monitor noted which is unchanged since admission to ICU. Peripheral pulses present with strong palpable radial pulses bilaterally to touch and strong lower extremity pulses using doppler. B/L upper extremity capillary refill brisk and B/L lower extremity capillary refill sluggish, skin cool to touch on all extremities. Cee catheter intact and draining clear with sediment/yellow urine to gravity. Skin assessment performed with DTI to sacrum - optifoam present - patient on specialty mattress and turned to left side for comfort and to maintain skin integrity. Skin tear to left forearm covered with optifoam and intact. Yenny, e learning designer at bedside and assessed sacral DTI with this nurse. Dr. Coyle at bedside, updated on patient's status, drips, labs and vital signs. Orders to "hold chest and abdomen CT until Saturday, pending removal of IABP by Dr. Longoria today". Fall and safety precautions in place. Will continue to monitor during shift.
--- NOTE | 2018-11-23 07:30 | NUR ---
WOUND CARE NOTE: IN TO DO QUICK SKIN ASSESSMENT TO PATIENT'S SACRUM. NON BLANCHABLE AREA LOOKS SLIGHTLY IMPROVED, WITH LESS ERYTHEMA. SKIN REMAINS INTACT, NON BLANCHING. WOUND CARE TEAM WILL CONTINUE TO MONITOR.
--- NOTE | 2018-11-23 08:17 | NUR ---
PAGED PULMONOLOGY DR BENITEZ TO PROVIDE ABG UPDATE, AWAITING RESPONSE.
--- NOTE | 2018-11-23 08:39 | NUR ---
CONTACT DR MORGAN TO UPDATE ON PATIENT'S STATUS. ORDERS TO CHANGE AUGMENTATION FROM 1:1 TO 1:2. ORDERS WILL BE CARRIED OUT.
[2018-11-23] MEDS: PANTOPRAZOLE 40 MG/10 ML VIAL INJ IV SCH (09:26)
[2018-11-23] MEDS: ENOXAPARIN SOD 40 MG/0.4 ML SYRINGE SC SCH ×2 (09:26→21:57)
[2018-11-23] MEDS: ASPirin 81 mg TAB PO SCH (09:26)
--- NOTE | 2018-11-23 09:29 | NUR ---
FAMILY AT BEDSIDE PATIENT'S SPOUSE - YENNY, DAUGHTER AND DAUGHTER'S PARTNER AT BEDSIDE, UPDATED ON PATIENT'S STATUS. ALL VERBALIZED UNDERSTANDING. WILL CONTINUE TO MONITOR.
--- NOTE | 2018-11-23 09:59 | NUR ---
PULMONOLOGY AT BEDSIDE DR BENITEZ UPDATED ON PATIENT'S STATUS AND MORNING ABG RESULTS. ORDERS FOR VENT CHANGES RECEIVED "DECREASE RATE FROM 14 TO 12 AND DECREASE TIDAL VOLUME FROM 550 TO 500. Rodrigo DE LOS SANTOS NOTIFIED.
--- NOTE | 2018-11-23 10:15 | NUR ---
PULMONOLOGY AT BEDSIDE/NEPHROLOGY DR BENITEZ AT BEDSIDE, DISCUSSED PLAN OF CARE WITH PATIENT'S FAMILY (SPOUSE, DAUGHTER AND DTR PARTNER). ALL FAMILY MEMBERS VERBALIZED UNDERSTANDING. DR ALVAREZ UPDATED ON PATIENT'S STATUS, LABS AND 24/HR INTAKE/OUTPUT. ORDERS RECEIVED AND TO ADMINISTER LASIX AFTER ELECTROLYTE REPLACEMENT. ORDERS ENTERED BY DR ALVAREZ AND WILL BE CARRIED OUT.
--- NOTE | 2018-11-23 10:19 | NUR ---
VENT SETTINGS CHANGED TO AC RR 12, VT500, PEEP8, 30% FIO2 PER DR BENITEZ ORDERS. RN AWARE. PT TOLERATING CHANGE WELL.
[2018-11-23] MEDS: MIDAZOLAM DRIP 50 mg/50mL 50 ML IV SCH ×2 (10:45→12:27)
[2018-11-23] MEDS: SOD CHL 0.9%/ KCL 20MEQ 1,000 ML IV SCH ×2 (11:15→21:56)
[2018-11-23] MEDS: POTASSIUM CHL 20MEQ/100ML 100 ML IV SCH ×5 (11:21→16:53)
--- NOTE | 2018-11-23 12:25 | NUR ---
DR MORGAN AT BEDSIDE ORDERS TO OBTAIN SUPPLIES FOR IABP REMOVAL AND CHANGE AUGMENTATION TO 1:3. AWAITING MD RETURN.
[2018-11-23] MEDS: fentaNYL Drip 2500mCg/250mlNS 250 ML IV SCH (12:28)
[2018-11-23] MEDS: FUROSEMIDE 40 MG/4 ML VIAL IV SCH (13:15)
--- NOTE | 2018-11-23 14:40 | NUR ---
DR MORGAN AT BEDSIDE/IABP DISCONTINUED THIS NURSE OUT TO LUNCH, CHARGE NURSE FELIX COVERING AND ASSISTED DR MORGAN IN DISCONTINUING IABP. IN THE PROCESS, DR MORGAN DISCONTINUED THE RIGHT GROIN CENTRAL LINE WELL - IV CATHETERS AND BALLOON PUMP FULLY INTACT, PRESSURE DRESSING APPLIED BY DR MORGAN . DRESSING TO RIGHT GROIN IS CLEAN, DRY AND INTACT, NO REDNESS, SWELLING AND DRAINAGE NOTED TO SITE. IV access x2 obtained by Felix charge nurse via clean sterile technique by inserting a 20 gauge catheter to the left forearm and 20 gauge catheter at the right AC after one attempt each time - IV's secured properly, no trauma to site. Comfort measures applied, partial bedding changed and patient cleansed of small, hard, brown stool, felix-area and catheter care performed with soap and water. Patient tolerated well.
--- NOTE | 2018-11-23 15:46 | NUR ---
ORDER CLARIFICATION CONTACT DR MORGAN TO VERIFY 60 MEQ IV POTASSIUM RIDER ORDER. THIS NURSE NOTIFIED DR MORGAN THAT PATIENT HAD ALREADY RECEIVED 40 MEQ IV POTASSIUM RIDER PREVIOUSLY ORDERED BY DR ALVAREZ. ORDERS TO ADMINISTER AN ADDITIONAL 20 MEQ POTASSIUM ONLY. ORDERS CARRIED OUT.
--- NOTE | 2018-11-23 17:30 | NUR ---
HEMATOLOGY/ONCOLOGY AT BEDSIDE DR CHAMPAGNE AT BEDSIDE, DISCUSSING PLAN OF CARE WITH PATIENT'S SPOUSE AND PATHOLOGY RESULTS. NO VERBAL ORDERS AT THIS TIME.
--- NOTE | 2018-11-23 18:42 | NUR ---
PULMONOLOGY AT ICU STATION AWARE OF IABP DISCONTINUED, ORDERS FOR CPAP TRAIL IN AM.
[2018-11-23] MEDS: NOREPINEPHRINE 8 MG/250ML KIT 250 ML IV SCH (19:15)
--- NOTE | 2018-11-23 19:30 | NUR ---
OPEN REPORT RECEIVED REPORT. FULL CODE ICU PATIENT. PT INTUBATED AND SEDATED ON VERSED, FENTANYL. SEE IV SPREAD SHEET FOR IV FLUIDS AND GTT'S. PERRL, HYPOACTIVE GAG. NOT FOLLOWING COMMANDS BUT REACTIVE TO PAINFUL STIMULI. NSR 70'S, BP 90-100'S ON NO PRESSORS. PERIPHERAL IV SITES ARE CLEAN D&I. NGT IN RIGHT DAWSON CLAMPED. VEGA PATENT DRAINING LIGHT NORY. RIGHT GROIN IABP REMOVAL SITE DRESSING FREE OF HEMATOMA. SACRUM HAS NON-BLANCHABLE PURPLE AREA WITH OPTIFOAM DRESSING IN PLACE. LFA SKIN TEAR DRESSING D&I. FOR FURTHER HEAD TO TOE ASSESSMENT SEE INTERVENTIONS . BED LOCKED AND IN LOWEST POSITION. ALL FALL AND SAFETY PRECAUTIONS IN PLACE.
[2018-11-24] VITALS (63 sets, daily range): BP systolic 91–157; BP diastolic 57–107
[2018-11-24] MEDS: PIPERACILLIN-TAZOB 2.25GM 50 ML IV SCH ×5 (01:11→23:58)
[2018-11-24] MEDS: LINEZOLID 600MG/300ML 300 ML IV SCH (03:30)
[2018-11-24 04:32] LABS: Basophils # (auto) 0 uL; Basophils % (auto) 0.3 % (0.0-2.0); Eosinophils # (auto) 0 uL; Eosinophils % (auto) 0.1 % (0.0-7.0); Hematocrit 33.4 % (36.0-46.0); Hemoglobin 11.4 g/dL (12.2-16.2); Lymphocytes # (auto) 0.8 uL; Lymphocytes % (auto) 10.2 % (10.0-50.0); Mean Corpuscular Hemoglobin 30.5 pg (28.0-32.0); Mean Corpuscular Volume 89.7 fL (80.0-100.0); Monocytes # (auto) 0.6 uL; Monocytes % (auto) 8.1 % (0.0-12.0); Neutrophils # (auto) 6.3 uL; Neutrophils % (auto) 81.3 % (37.0-80.0); Nucleated Red Blood Cells % 0.1 %; Platelet Count (auto) 197 10^3/uL (140-450); Red Blood Cells 3.73 10^6/uL (4.0-5.20); Red Cell Distribution Width 15.4 % (11.8-14.3); White Blood Cell 7.7 10^3/uL (4.4-10.8)
--- NOTE | 2018-11-24 04:32 | NUR ---
BED BATH GIVEN FULL LINEN AND BEDDING CHANGED. COMPLETE BED BAD GIVEN AND TOLERATED WELL. SKIN REASSESSED AND NO NEW BREAK DOWN NOTED.
[2018-11-24 04:56] LABS: Chloride 108 mmol/L (98-107); Potassium 4.1 mmol/L (3.5-5.1); Sodium 140 mmol/L (136-145)
[2018-11-24 05:00] LABS: Albumin 1.9 g/dL (3.4-5.0); Anion Gap 15 (5-15); BUN/Creatinine Ratio 17.2; Blood Urea Nitrogen 21 mg/dL (7-18); Calcium 8.7 mg/dL (8.5-10.1); Carbon Dioxide 17 mmol/L (21-32); GFR African American 55 mL/min; GFR Non-African American 46 mL/min; Glucose 113 mg/dL (74-106)
[2018-11-24 05:05] LABS: Alanine Aminotransferase 40 U/L (13-56); Alkaline Phosphatase 137 U/L (45-117); Aspartate Aminotransferase 42 U/L (15-37); Bilirubin, Total 0.4 mg/dL (0.2-1.0); Total Protein 6.1 g/dL (6.4-8.2)
[2018-11-24] MEDS: InsuLIN REG 1unit/0.01ml Soln (100units/ml) SC SCH ×3 (06:00→18:29)
[2018-11-24] MEDS: ACCU-CHEK COMFORT CURVE STRIP VI SCH ×3 (06:35→18:19)
[2018-11-24] MEDS: SOD CHL 0.9%/ KCL 20MEQ 1,000 ML IV SCH (06:59)
--- NOTE | 2018-11-24 07:10 | NUR ---
OPENING NOTE SHIFT REPORT RECEIVED AND ASSUMED CARE OF PT FROM ROSA YANEZ
--- NOTE | 2018-11-24 07:24 | NUR ---
END OF SHIFT GAVE REPORT OF FULL CODE ICU PATIENT TO DAY SHIFT RN. VSS. ALL FALL AND SAFETY PRECAUTIONS IN PLACE.
--- NOTE | 2018-11-24 08:19 | NUR ---
PT NOT STABLE FOR TRANSPORT TO CT AT THIS TIME. WILL CONTINUE TO CHECK WITH KRISTIE RN DURING DAY REGARDING PT STATUS.
[2018-11-24] MEDS ORDERED: SODIUM BICARBONATE IV SCH (09:45)
[2018-11-24] MEDS ORDERED: POTASSIUM CHLORIDE IV SCH (09:45)
[2018-11-24] MEDS ORDERED: SOD CHL 0.45% IV SCH (09:45)
--- NOTE | 2018-11-24 10:00 | NUR ---
DR. ALVAREZ AT BEDSIDE ORDERS RECEIVED
[2018-11-24] MEDS: FUROSEMIDE 40 MG/4 ML VIAL IV SCH (10:22)
[2018-11-24] MEDS: ENOXAPARIN SOD 40 MG/0.4 ML SYRINGE SC SCH ×2 (10:25→22:06)
[2018-11-24] MEDS: ASPirin 81 mg TAB PO SCH (10:25)
[2018-11-24] MEDS: PANTOPRAZOLE 40 MG/10 ML VIAL INJ IV SCH (10:25)
--- NOTE | 2018-11-24 11:10 | NUR ---
Nutrition Follow-up Notes Wt.: 85.0 kg today. Pt's intubated, non-sedated, no immediate family member at bedside except for RN during rounds earlier. Pt remains NPO, no order for alternate nutrition support yet at this time, for possible CPAP trial, per nursing. Noted pt's for active Wound consult Est. Needs: 1550 kcal to 1900 kcal (20-25 kcal/kgBW), 61 gms to 77 gms pro (0.8-1.0 gms/kgBW). Will continue to monitor pertinent labs and reassess nutrient need prn Labs: Gluc 111 H, Cl 108 H, BUN 21 H, Cr 1.22 H, AST 16 H, ALT 201 H, ALP 80 H; Tpro 6.1 L, Alb 1.9 L; HbA1c 6.5 H Skin: Arjun scale 10, high risk, pt's medial sacrum DTI per documentation manager. Pls refer to latest global marketing specialist's notes for details re: tx plans. GI: Pt's no bowel activity since 11/20/18 per documentation manager. PES: Increased nutrient needs r/t acute/chronic medical condition aeb intubated, sedated, mod hypoalbuminemia,NPO. Altered nutrition related lab values r/t current/chronic medical condition aeb hyperglycemia, hyperchloremia, elev. renal labs, lactic acid , AST, mod hypoalbuminemia Will continue to monitor NPO status, skin status, pertinent labs and weight trend. F/u in 2 to 3 days. Rec.: 1.) Advance gradually to oral diet when medically appropriate. 2.) If still NPO, consider alternate nutrition/EN support preferred with formula choice of Jevity 1.2 Terell @ 60 ml/hr goal rate as tolerated if medically appropriate. 3.) If Albumin continues trending down with improved renal labs, consider Prostat 1 pkt BID. 4.) Refer to RD for further nutrition educ. and weight monitoring upon discharge. 6.) Continue current plan of care.
--- NOTE | 2018-11-24 11:30 | NUR ---
PAGED DR. MA REGARDING BLOOD PRESSURE AND HEART RATE
--- NOTE | 2018-11-24 11:43 | NUR ---
PAGED DR. MA AGAIN REGARDING HEART RATE AND BLOOD PRESSURE
--- NOTE | 2018-11-24 12:00 | NUR ---
RECEIVED ORDERS FROM DR. CARVALHO
[2018-11-24] MEDS ORDERED: DexMEDEtomidine 400 MCG in D5W 5% 96 ML IV SCH (12:03)
[2018-11-24] MEDS: DexMEDEtomidine 400 MCG in D5W 5% 96 ML IV SCH (12:59)
--- NOTE | 2018-11-24 14:10 | NUR ---
DR. RAMAN AT BEDSIDE ORDERS RECEIVED
[2018-11-24] MEDS: SODIUM BICARBONATE IV SCH (14:15)
[2018-11-24] MEDS: SOD CHL 0.45% IV SCH (14:15)
[2018-11-24] MEDS: POTASSIUM CHLORIDE IV SCH (14:15)
[2018-11-24 14:44] LABS: Ferritin 256.1 ng/mL (10-322)
[2018-11-24 14:45] LABS: Folate (Folic Acid) 8.91 ng/mL (5.38-24)
--- NOTE | 2018-11-24 16:00 | NUR ---
RT Transport Note: Patient transported to CT with RN SANTOS HERNANDEZ. Patient transported to and from procedure on ventilator with previous ordered settings. Patient on telemetry monitor with alarms set and audible, ambu-bag/mask connected to 02 tank. Patient returned to room with no adverse reaction noted. Transport completed without incident.
--- NOTE | 2018-11-24 16:34 | NUR ---
Assessment Pt is a 78 yr old female on a vent. Pts , Manuel Tracey, was in the room and answered questions. Prior to admit, pt lived with her , Manuel, who is her emergency contact at C:[phone], H: [phone]. Prior to admit, pt was ambulatory and able to do mild house work and cooking. Pt receives some cleaning help from a neighbor. Pt owns a walker but did not use it. Pt used a heightened toilet seat on the toilet. Pts primary is Dr. Capellan. Pt does not have AD on file and no interest currently. Pts stated that he has been very happy with the staff and doctors treatment of his . D/c planning and further needs will be assessed when closer to d/c. Addendum: 11/24/18 at 1654 by BENNY VILLARREAL SS Amended: Links added.
--- NOTE | 2018-11-24 19:00 | NUR ---
OPENING NOTE ASSUMED CARE OF PATIENT AT THIS TIME. REPORT RECEIVED FROM DAY SHIFT RN. POC REVIEWED. HEAD TO TOE ASSESSMENT COMPLETE, SEE INTERVENTION SPREADSHEET FOR COMPLETE DETAILS. RECEIVED PT ON VENTILATOR. NO SEDATION AT THIS TIME. PT WITHDRAWS TO PAIN BUT DOES NOT OPEN EYES OR FOLLOW COMMANDS. VSS. IV SITES BENIGN. BED LOCKED AND IN LOWEST POSITION, SAFETY PRECAUTIONS IN PLACE. WILL MONITOR PT CAREFULLY.
--- NOTE | 2018-11-24 19:10 | NUR ---
CLOSING NOTE SHIFT REPORT GIVEN AND CARE ENDORSED TO GENA YANEZ
--- NOTE | 2018-11-24 20:15 | NUR ---
ELIMINATION PT HAD MODERATE FORMED BM. PT CLEANED AND REPOSITIONED. NO SKIN INTEGRITY CHANGES NOTED.
--- NOTE | 2018-11-24 21:15 | NUR ---
pt not on sedation at this time Addendum: 11/24/18 at 2115 by GENA CALLEJAS RN Amended: Links added.
[2018-11-24] MEDS: NOREPINEPHRINE 8 MG/250ML KIT 250 ML IV SCH (22:10)
[2018-11-24] MEDS: fentaNYL Drip 2500mCg/250mlNS 250 ML IV SCH (22:11)
[2018-11-25] VITALS (89 sets, daily range): BP systolic 66–149; BP diastolic 23–120
[2018-11-25] MEDS: ACCU-CHEK COMFORT CURVE STRIP VI SCH ×4 (00:04→18:32)
--- NOTE | 2018-11-25 04:30 | NUR ---
Bathing/linen change Pt given bed bath with partial linen change. Pt had large formed bm at this time. Skin assessed for integrity changes, none noted. Pt repositioned for safety and comfort. Suction tubing and canister changed at this time.
[2018-11-25 04:37] LABS: Basophils # (auto) 0 uL; Basophils % (auto) 0.4 % (0.0-2.0); Eosinophils # (auto) 0 uL; Eosinophils % (auto) 0.1 % (0.0-7.0); Hematocrit 31.9 % (36.0-46.0); Hemoglobin 10.6 g/dL (12.2-16.2); Lymphocytes # (auto) 0.9 uL; Lymphocytes % (auto) 12.5 % (10.0-50.0); Mean Corpuscular Hgb Conc. 33.2 g/dL (32.0-36.0); Mean Corpuscular Volume 90.3 fL (80.0-100.0); Monocytes # (auto) 0.5 uL; Monocytes % (auto) 6.9 % (0.0-12.0); Neutrophils % (auto) 80.1 % (37.0-80.0); Nucleated Red Blood Cells % 0.1 %; Platelet Count (auto) 256 10^3/uL (140-450); Red Blood Cells 3.53 10^6/uL (4.0-5.20); Red Cell Distribution Width 15.4 % (11.8-14.3); White Blood Cell 7.4 10^3/uL (4.4-10.8)
[2018-11-25 05:09] LABS: Potassium 3.9 mmol/L (3.5-5.1)
[2018-11-25 05:14] LABS: BUN/Creatinine Ratio 20.3; Bilirubin, Total 0.4 mg/dL (0.2-1.0); Phosphorus 3.5 mg/dL (2.5-4.90); Total Protein 6.2 g/dL (6.4-8.2)
[2018-11-25] MEDS: InsuLIN REG 1unit/0.01ml Soln (100units/ml) SC SCH ×4 (06:00→18:00)
[2018-11-25] MEDS: PIPERACILLIN-TAZOB 2.25GM 50 ML IV SCH ×3 (06:23→18:14)
--- NOTE | 2018-11-25 07:15 | NUR ---
OPENING NOTE SHIFT REPORT GET BACK RECEIVED AND ASSUMED CARE OF PT FROM GENA YANEZ
[2018-11-25] MEDS: SODIUM BICARBONATE IV SCH (07:39)
[2018-11-25] MEDS: POTASSIUM CHLORIDE IV SCH (07:39)
[2018-11-25] MEDS: SOD CHL 0.45% IV SCH (07:39)
--- NOTE | 2018-11-25 07:45 | NUR ---
LIFE SCIENCE RESEARCH ASSISTANT AT BEDSIDE
[2018-11-25] MEDS ORDERED: OPTISON 3ml Vial for INJ IV ONE (09:23)
[2018-11-25] MEDS ORDERED: POTASSIUM CHLORIDE IV SCH ×2 (10:15→13:00)
[2018-11-25] MEDS: LABETALOL HCL 200 MG TAB NG SCH ×2 (10:15→22:00)
[2018-11-25] MEDS ORDERED: SODIUM BICARBONATE IV SCH ×2 (10:15→13:00)
[2018-11-25] MEDS ORDERED: SOD CHL 0.45% IV SCH ×2 (10:15→13:00)
[2018-11-25] MEDS: ENOXAPARIN SOD 40 MG/0.4 ML SYRINGE SC SCH (10:21)
--- NOTE | 2018-11-25 10:30 | NUR ---
DR. ALVAREZ AT BEDSIDE ORDERS RECEIVED
[2018-11-25] MEDS: FUROSEMIDE 40 MG/4 ML VIAL IV SCH (10:34)
[2018-11-25] MEDS: PANTOPRAZOLE 40 MG/10 ML VIAL INJ IV SCH (10:34)
[2018-11-25] MEDS: ASPirin 81 mg TAB PO SCH (10:49)
--- NOTE | 2018-11-25 11:00 | NUR ---
VERY LARGE AMOUNT BM CHUNKY FORMED AND SOFT BROWN STOOL. PT CLEANSED WITH SOAP AND WATER. LINENS CHANGED
--- NOTE | 2018-11-25 11:15 | NUR ---
EKG DONE DUE TO ABNORMAL RHYTHM ON MONITOR
[2018-11-25] MEDS: DexMEDEtomidine 400 MCG in D5W 5% 96 ML IV SCH (11:24)
[2018-11-25] MEDS ORDERED: LORazepam 2MG/ML-1ML VIAL IV PRN (13:00)
[2018-11-25] MEDS ORDERED: Jevity 1.2 Cal/Fiber 1 Liter GT SCH (13:00)
[2018-11-25] MEDS ORDERED: MORPHINE SULF INJ 2 MG/ML SYRINGE 1ML IV PRN (13:00)
--- NOTE | 2018-11-25 13:00 | NUR ---
WOUND CARE AT BEDSIDE
--- NOTE | 2018-11-25 13:10 | NUR ---
WOUND CARE NOTE: Brief reassessment done by wound care team. Patient seen with bedside RN, Victoria. Patient still with pressure injury to sacrum. Purple area of discoloration appears to have decreased in size and surrounding area is red, blanching while entire area remains intact. Patient has been incontinent of stool multiple times today. Stool is becoming increasingly more liquid, recommend nursing to place rectal tube. Wound care team to continue to follow.
--- NOTE | 2018-11-25 13:20 | NUR ---
DR. RAMAN AT BEDSIDE ORDERS RECEIVED
--- NOTE | 2018-11-25 14:41 | NUR ---
Respiratory note: PT OFF SEDATION FOR 3 DAYS NOW AND NOT WAKING UP. UNABLE TO DO CPAP TRIAL.
--- NOTE | 2018-11-25 16:30 | NUR ---
DR. JAUREGUI AT BEDSIDE NO FAMILY AT BEDSIDE AT THIS TIME. DID INFORM DR. RAMAN ABOUT NEW FINDING OF MOTTLED COLD FEET. HE IS AWARE BUT NO NEW ORDERS AT THIS TIME. WRAPPED PT'S FEET WITH WARM BLANKETS AND PULSES AUSCULTATED WITH DOPPLER. CAP REFILL GREATER THAN 3 MINUTES. WILL CONTINUE TO MONITOR
--- NOTE | 2018-11-25 17:45 | NUR ---
Respiratory note: PER DR Misbah BREEN, PEEP TITRATED TO 7CMH2O. BEAU Sifuentes AT BEDSIDE AND AWARE OF CHANGE.
--- NOTE | 2018-11-25 18:00 | NUR ---
Respiratory note: RECEIVED PT ON VENT V9 VENT CONNECTED TO RED OUTLET AND O2 SOURCE. ALARMS ARE SET AND AUDIBLE AMBU BAG AND MASK AT BEDSIDE. BS ARE DIMINISHED T/O, SXD FOR SCANT CLEAR/SALVADOR RETURN. RT NAME AND PAGER ASSIGNMENT WRITTEN ON PTS ROOM BOARD. WILL CONTINUE TO MONITOR.
--- NOTE | 2018-11-25 19:00 | NUR ---
CALLED DR. ALVAREZ REGARDING OUTPUT ORDERS RECEIVED
--- NOTE | 2018-11-25 19:10 | NUR ---
CLOSING NOTE SHIFT REPORT AND CARE ENDORSED TO ALEJANDRA YANEZ
--- NOTE | 2018-11-25 19:15 | NUR ---
OPENING SHIFT RECEIVED REPORT FROM DAY SHIFT RN. ASSUMED CARE OF PATIENT. PATIENT IN BED, VENTED - ET SIZE 8 22 AT THE LIP,NO SIGNS OR SYMPTOMS OF SOB, PAIN OR DISTRESS. PATIENT HAS A COUGH AND GAG RESPONSE WHEN SUCTIONED. NGT TO THE RIGHT NARE, VERIFIED PLACEMENT VIA AUSCULTATION WITH 10CC OF AIR, MINIMAL RESIDUAL PULLED BACK. CURRENT VENT SETTINGS - AC 12 / TV 500 / PEEP 7 / FI02 30%, 02 SAT - 90%. RIGHT ANTECUBITAL IV - CLEAN/DRY/INTACT, LEFT FOREARM IV REMOVED - CATHETER INTACT. VEGA AND FLEXISEAL HUNG TO GRAVITY ON BED RAIL. REPOSITIONED FOR COMFORT. WILL CONTINUE TO MONITOR.
[2018-11-25] MEDS ORDERED: FUROSEMIDE 40 MG/4 ML VIAL IV ONE (20:15)
--- NOTE | 2018-11-25 21:15 | NUR ---
STOP TUBE FEEDING TUBE FEEDING HELD DUE TO HIGH RESIDUAL - 35CC. WILL CONTINUE TO MONITOR.
--- NOTE | 2018-11-25 21:25 | NUR ---
LOW BP NOTED PATIENTS BP 62/41, PATIENT STARTED ON LEVOPHED 2MCG. WILL CONTINUE TO MONITOR.
[2018-11-25] MEDS: NOREPINEPHRINE 8 MG/250ML KIT 250 ML IV SCH (21:30)
[2018-11-25] MEDS ORDERED: LABETALOL HCL 200 MG TAB NG SCH (22:00)
--- NOTE | 2018-11-25 22:10 | NUR ---
CENTRAL LINE CONSENT CALLED YENNY AND UPDATED HIM ON PATIENT STATS. RECEIVED TELEPHONE CONSENT FOR CENTRAL LINE PLACEMENT, VERIFIED WITH LEANA YANEZ. HOSPITALIST MADE AWARE.
--- NOTE | 2018-11-25 23:00 | NUR ---
CENTRAL LINE PLACEMENT HOSPITALIST AT BEDSIDE INSERTING RIGHT INTRAJUGULAR TLC. STAT CHEST XRAY ORDERED TO VERIFY PLACEMENT.
[2018-11-26] VITALS (31 sets, daily range): BP systolic 42–191; BP diastolic 22–120
[2018-11-26] MEDS: ACCU-CHEK COMFORT CURVE STRIP VI SCH ×3 (00:30→11:38)
[2018-11-26] MEDS: InsuLIN REG 1unit/0.01ml Soln (100units/ml) SC SCH ×3 (00:30→11:38)
--- NOTE | 2018-11-26 00:30 | NUR ---
LOW BLOOD SUGAR BLOOD SUGAR OF 35. INITIATED HYPOGLYCEMIC PROTOCOL. WILL CONTINUE TO MONITOR.
[2018-11-26] MEDS: DEXTROSE (50%) 50ML SYRG IV PRN ×2 (00:42→11:41)
--- NOTE | 2018-11-26 00:46 | NUR ---
BLOOD SUGAR RECHECKED BLOOD SUGAR - 88. WILL CONTINUE TO MONITOR.
[2018-11-26] MEDS: PIPERACILLIN-TAZOB 2.25GM 50 ML IV SCH ×3 (00:49→11:38)
--- NOTE | 2018-11-26 01:39 | NUR ---
BLOOD SUGAR RECHECKED BLOOD SUGAR - 98. WILL CONTINUE TO MONITOR.
--- NOTE | 2018-11-26 02:13 | NUR ---
Respiratory note: AT BEDSIDE FOR VENT CHECK. UNABLE TO OBTAIN ACCURATE POX DUE TO LOW PERFUSION ON POX PROBE PLACEMENT SITES. WILL ATTEMPT TO OBTAIN A SATURATION BY PORTABLE POX.
--- NOTE | 2018-11-26 02:31 | NUR ---
Respiratory note: UNABLE TO OBTAIN POX, BEAU HOWARD COVERING FOR BEAU GUILLEN MADE AWARE I WILL OBTAIN AN ABG TO ASSURE IF PTS SATURATION IS OF CONCERN AT THIS TIME.
--- NOTE | 2018-11-26 02:35 | NUR ---
02 SATURATION UNABLE TO OBTAIN ACCURATE 02 SAT. PER ABG P02 = 137. WILL CONTINUE TO MONITOR.
[2018-11-26] MEDS ORDERED: SODIUM BICARBONATE 50ML VIAL 100 ML in SOD CHL 0.45% 1,000 ML IV SCH (03:15)
[2018-11-26] MEDS ORDERED: SODIUM BICARBONATE 8.4 % INJ 50ML VIAL IV ONE ×8 (03:15→10:00)
--- NOTE | 2018-11-26 03:15 | NUR ---
BLOOD GAS PAGED HOSPITALIST IN REGARDS TO BLOOD GAS, AWAITING CALL BACK.
--- NOTE | 2018-11-26 03:35 | NUR ---
HOSPITALIST HOSPITALIST CALLED BACK AND GAVE ORDERS FOR 100 MEQ SODIUM BICARB IN 0.45% NS AT 100ML/HR AND 50 MEQ SODIUM BICARB IV PUSH. ORDERS CARRIED OUT, WILL CONTINUE TO MONITOR.
[2018-11-26 03:51] LABS: Basophils # (auto) 0 uL; Basophils % (auto) 0.2 % (0.0-2.0); Eosinophils # (auto) 0 uL; Hematocrit 36.3 % (36.0-46.0); Hemoglobin 11.4 g/dL (12.2-16.2); Lymphocytes # (auto) 0.5 uL; Lymphocytes % (auto) 4.4 % (10.0-50.0); Mean Corpuscular Hemoglobin 30.5 pg (28.0-32.0); Mean Corpuscular Hgb Conc. 31.5 g/dL (32.0-36.0); Mean Corpuscular Volume 96.8 fL (80.0-100.0); Monocytes # (auto) 0.9 uL; Monocytes % (auto) 7.3 % (0.0-12.0); Neutrophils # (auto) 10.6 uL; Neutrophils % (auto) 88.1 % (37.0-80.0); Nucleated Red Blood Cells % 0.2 %; Platelet Count (auto) 215 10^3/uL (140-450); Red Blood Cells 3.75 10^6/uL (4.0-5.20); Red Cell Distribution Width 15.9 % (11.8-14.3)
--- NOTE | 2018-11-26 04:00 | NUR ---
Respiratory note: END OF SHIFT CHECK. UNABLE TO OBTAIN POX READING AT THIS TIME. ABG DONE AT 0230 PO2 OF 137.6. ANOTHER ABG IS ORDERED FOR 0530 PER DAISY CARL, DUE TO PTS METABOLIC STATE. WILL ENDORSE CARE TO DAY SHIFT RT.
[2018-11-26 04:37] LABS: Albumin 1.8 g/dL (3.4-5.0); BUN/Creatinine Ratio 15.9; Bilirubin, Total 1.4 mg/dL (0.2-1.0); Calcium 8.8 mg/dL (8.5-10.1); Total Protein 5.9 g/dL (6.4-8.2)
--- NOTE | 2018-11-26 04:40 | NUR ---
Respiratory note: PLACED PT ON CO2 MONITORING. STILL UNABLE TO GET A READ ON POX. RN CINDY GUILLEN AWARE OF ALL INTERVENTIONS.
--- NOTE | 2018-11-26 05:12 | NUR ---
HOSPITALIST PAGED HOSPITALIST IN REGARDS TO CRITICAL LABS. AWAITING CALL BACK.
[2018-11-26 05:15] LABS: Potassium 6.6 mmol/L (3.5-5.1)
--- NOTE | 2018-11-26 05:15 | NUR ---
CRITICAL LAB AND ABNORMAL 12LEAD SENT MESSAGE TO DR. MORGAN IN REGARDS TO A POTASSIUM LEVEL OF 6.6, AND AN ABNORMAL 12LEAD WITH A WIDENING QRS WAVE. AWAITING RESPONSE.
--- NOTE | 2018-11-26 05:45 | NUR ---
SPOKE TO Yissel NIEVES REGARDING POTASSIUM 6.6 AND BICARB 4 ON ABG. ORDERS RECEIVED AND INITIATED.
[2018-11-26] MEDS ORDERED: SODIUM BICARBONATE 50ML VIAL 150 ML in SOD CHL 0.45% 1,000 ML IV SCH (06:00)
[2018-11-26] MEDS ORDERED: DEXTROSE (50%) 50ML SYRG IV ONE ×3 (06:00→09:45)
[2018-11-26] MEDS ORDERED: SODIUM ZIRCONIUM CYCL 10 GM PAK PO ONE ×2 (06:00→06:30)
[2018-11-26] MEDS: ALBUMIN 25% 100 ML IV SCH ×2 (06:00→07:00)
[2018-11-26] MEDS ORDERED: ALBUTEROL SULF 2.5 MG/0.5ML(0.5%) NEB SOLN NEB ONE (06:00)
[2018-11-26] MEDS ORDERED: SODIUM BICARBONATE 50ML VIAL 150 ML in SOD CHL 0.45% 1,000 ML IV ONE (06:00)
[2018-11-26] MEDS ORDERED: InsuLIN REG 1unit/0.01ml Soln (100units/ml) IV ONE ×3 (06:00→09:45)
[2018-11-26] MEDS ORDERED: CALCIUM GLUC 4.65meq/50ml D5AE 50 ML IV ONE ×3 (06:00→09:45)
--- NOTE | 2018-11-26 06:00 | NUR ---
SIDDHARTHA RADIOISOTOPE TECHNICIAN AT BEDSIDE, ORDERS RECEIVED AND INITIATED.
[2018-11-26] MEDS ORDERED: InsuLIN REG 1unit/0.01ml Soln (100units/ml) ONE (06:06)
[2018-11-26] MEDS ORDERED: DEXTROSE 50% SYRINGE 50 ML IV ONE (06:06)
[2018-11-26] MEDS ORDERED: CALCIUM GLUC 4.65 MEQ/10ML 10 ML IV ONE (06:07)
[2018-11-26] MEDS ORDERED: SODIUM ZIRCONIUM CYCL 10 GM PAK ONE (06:14)
[2018-11-26] MEDS ORDERED: ALBUMIN 5% 250 ML IV ONE ×2 (06:21→06:30)
[2018-11-26] MEDS ORDERED: SOD CHL IV ONE (07:15)
[2018-11-26] MEDS ORDERED: SODIUM BICARBONATE IV ONE (07:15)
--- NOTE | 2018-11-26 07:15 | NUR ---
REPORT GIVEN, CARE ENDORSED TO DAY SHIFT RN.
[2018-11-26] MEDS: NOREPINEPHRINE 8 MG/250ML KIT 250 ML IV SCH (08:01)
--- NOTE | 2018-11-26 08:14 | NUR ---
DR. ALLEN ROSEN REGARDING K LEVEL 6.8
[2018-11-26 08:17] LABS: Lactic Acid w/Reflex 21.9 mmol/L (0.4-2.0)
[2018-11-26] MEDS ORDERED: SOD CHL IV SCH ×4 (08:30)
[2018-11-26] MEDS ORDERED: SODIUM BICARBONATE IV SCH ×4 (08:30)
[2018-11-26] MEDS ORDERED: PHENYLEPHRINE IV 250 ML IV ONE ×2 (08:43→10:29)
[2018-11-26 08:49] LABS: Magnesium 3.1 mg/dL (1.6-2.6)
--- NOTE | 2018-11-26 09:18 | NUR ---
VASOPRESSORS. PER HE WOULD LIKE PATIENT ON TWO VASOPRESSORS AT THIS TIME AND DOES NOT WANT ANOTHER VASOPRESSOR STARTED FOR BLOOD PRESSURE SUPPORT. PATIENT HYPOTENSIVE OR BLOOD PRESSURE UNABLE TO READ. VERBALIZED UNDERSTANDING STATING "ITS ONLY GOING TO PROLONG IT"
[2018-11-26] MEDS ORDERED: NOREPINEPHRINE 8 MG/250ML KIT 250 ML IV SCH (09:22)
--- NOTE | 2018-11-26 09:34 | NUR ---
DR. ALVAREZ CALLBACK ORDERS RECEIVED
--- NOTE | 2018-11-26 09:40 | NUR ---
ABG PER DO NOT ATTEMPT TO GET ABG AT THIS TIME FROM PATIENT. WOULD LIKE TO KEEP PATIENT COMFORTABLE POSSIBLE
[2018-11-26] MEDS ORDERED: D5W 5% 1,000 ML IV SCH (09:45)
[2018-11-26] MEDS: ENOXAPARIN SOD 80 MG/0.8ML SYRINGE SC SCH ×2 (10:00→12:40)
[2018-11-26] MEDS ORDERED: VASOPRESSIN 50 UNITS in D5W 5% 247.5 ML IV SCH (10:00)
[2018-11-26] MEDS: LABETALOL HCL 200 MG TAB NG SCH (10:00)
[2018-11-26] MEDS: ASPirin 81 mg TAB PO SCH (10:00)
[2018-11-26] MEDS ORDERED: SODIUM BICARBONATE 50ML VIAL 150 ML in D5W 5% 1,000 ML IV SCH (10:00)
[2018-11-26] MEDS: PANTOPRAZOLE 40 MG/10 ML VIAL INJ IV SCH (10:23)
--- NOTE | 2018-11-26 11:17 | NUR ---
Nutrition Follow-up Notes Wt.: 90.0 kg today. Noted 5 kg weight gain in last 2 days likely d/t ?fluid retention aeb positive I & Os for past few days. Pt's intubated, non-sedated, currently NPO, noted with EN support temporarily held last night d/t high residuals since last night, per nursing. Pt's previously on Jevity 1.2 Terell @ 30 ml/hr providing 864 kcal, 40 gms pro and 581 ml free water. Est. Needs: 1550 kcal to 1900 kcal (20-25 kcal/kgBW), 61 gms to 77 gms pro (0.8-1.0 gms/kgBW). Will continue to monitor pertinent labs and reassess nutrient need prn Labs: POC Gluc 69 L, Lactic acid 19.9 H, Mg 3.1 H, Trop I 8.230 H, CO2 28 H, BUN 55 H, Cr 3.47 H, AST 58324 H, ALT 9642 H, ALP 293 H; Tpro 5.9 L, Alb 1.8 L; HbA1c 6.5 H Skin: Arjnu scale 11, high risk, pt's medial sacrum DTI per vault keeper. Pls refer to latest attendance clerk's notes for details re: tx plans. GI: Pt's no bowel activity since 11/20/18 per vault keeper. PES: Increased nutrient needs r/t acute/chronic medical condition aeb intubated, sedated, mod hypoalbuminemia,NPO. Altered nutrition related lab values r/t current/chronic medical condition aeb hyperglycemia, hyperchloremia, elev. renal labs, lactic acid , AST, mod hypoalbuminemia Will continue to monitor NPO status, skin status, pertinent labs and weight trend. F/u in 2 to 3 days. Rec.: 1.) If still NPO, consider to resume EN support at lower rate and gradually increase feeding rate of Glucerna 1.2 Terell 1.2 Terell to 60 ml/hr goal rate as tolerated when medically appropriate. 2.) If Albumin continues trending down with improved renal labs, consider Prostat 1 pkt BID. 3.) Advance gradually to oral diet when medically appropriate. 4.) Refer to CDE/RD for further nutrition educ. and weight monitoring upon discharge. 5.) Continue current plan of care.
[2018-11-26] MEDS ORDERED: fentaNYL Drip 2500mCg/250mlNS 250 ML IV SCH (12:03)
[2018-11-26] MEDS ORDERED: MIDAZOLAM DRIP 50 mg/50mL 50 ML IV SCH (12:03)
[2018-11-26] MEDS ORDERED: DEXTROSE (50%) 50ML SYRG IV PRN (12:15)
--- NOTE | 2018-11-26 12:34 | NUR ---
DR. JAUREGUI AT BEDSIDE
[2018-11-26] MEDS ORDERED: LINEZOLID 600MG/300ML 300 ML IV SCH (13:00)
--- NOTE | 2018-11-26 13:52 | NUR ---
TERMINAL WEEN BY RT ALL DRIPS STOPPED AT THIS TIME PER FAMILY WISHES
--- NOTE | 2018-11-26 14:01 | NUR ---
ASYSTOLE PATIENT ASYSTOLE, NO PUPIL RESPONSE WITH NO HEART RTE BY AUSCULTATION
--- NOTE | 2018-11-26 14:05 | NUR ---
GARY RAMOS AT BEDSIDE TO PRONOUNCE PATIENT. AT BEDSIDE. ALL QUESTIONS AND CONCERNS ADDRESSED AT THIS TIME
--- NOTE | 2018-11-26 14:28 | NUR ---
Respiratory note: TERMINAL WEAN ORDER. FAMILY CHOSE NOT TO WATCH. DEEP SUCTIONED AND ORALLY SUCTIONED. DEFLATED CUFF AND EXTUBATED. PLACED PT ON 2 LPM NASAL CANULA.
--- NOTE | 2018-11-26 14:45 | NUR ---
[facility] CALLED
--- NOTE | 2018-11-26 14:49 | NUR ---
LOAN INTERVIEWER PAGED AWAITING CALLBACK
[2018-11-26] MEDS ORDERED: ACCU-CHEK COMFORT CURVE STRIP VI SCH (16:00)
[2018-11-26] MEDS ORDERED: InsuLIN REG 1unit/0.01ml Soln (100units/ml) SC SCH (16:00)
--- NOTE | 2018-11-26 16:39 | NUR ---
[employer] AND CREMATION PER FAMILY WISHES. SPOKE WITH HANH REGARDING CORN CHIP MAKER TIME
--- NOTE | 2018-11-26 17:37 | NUR ---
PROFESSIONAL ENGINEER REPAGED PER DISPATCHER, PATIENT ON LIST FOR CALLBACK
== END 2018-11-27 11:05 | disposition expired | DRG 853 ==
LOC: EDBD 08:27 → ER 08:27 → CATH 1 10:11 → DOU IN ICU 11:35 → ICU WEST 15:30
PROVIDERS: ADMIT Internal Medicine Cardiovascular Disease; ATTEND Internal Medicine
PROC: 5A02210 Assistance with Cardiac Output using Balloon Pump, Continuous (ICD-10-PCS; principal; 2018-11-20)
PROC: B2111ZZ Fluoroscopy of Multiple Coronary Arteries using Low Osmolar Contrast (ICD-10-PCS; 2018-11-20)
PROC: B2151ZZ Fluoroscopy of Left Heart using Low Osmolar Contrast (ICD-10-PCS; 2018-11-20)
PROC: 4A023N7 Measurement of Cardiac Sampling and Pressure, Left Heart, Percutaneous Approach (ICD-10-PCS; 2018-11-20)
PROC: 5A1955Z Respiratory Ventilation, Greater than 96 Consecutive Hours (ICD-10-PCS; 2018-11-20)
PROC: 0BH17EZ Insertion of Endotracheal Airway into Trachea, Via Natural or Artificial Opening (ICD-10-PCS; 2018-11-20)
PROC: 02H633Z Insertion of Infusion Device into Right Atrium, Percutaneous Approach (ICD-10-PCS; 2018-11-26)
PROC: B244ZZZ Ultrasonography of Right Heart (ICD-10-PCS; 2018-11-26)
DX: A41.9 Sepsis, unspecified organism (principal); I21.4 Non-ST elevation (NSTEMI) myocardial infarction; I50.43 Acute on chronic combined systolic (congestive) and diastolic (congestive) heart failure; J96.01 Acute respiratory failure with hypoxia; N17.0 Acute kidney failure with tubular necrosis; K72.00 Acute and subacute hepatic failure without coma; R65.21 Severe sepsis with septic shock; J18.9 Pneumonia, unspecified organism; I13.0 Hypertensive heart and chronic kidney disease with heart failure and stage 1 through stage 4 chronic kidney disease, or unspecified chronic kidney disease; I42.9 Cardiomyopathy, unspecified; E87.4 Mixed disorder of acid-base balance; I51.81 Takotsubo syndrome; R57.9 Shock, unspecified; G93.1 Anoxic brain damage, not elsewhere classified; J98.11 Atelectasis; E87.5 Hyperkalemia; N18.3 Chronic kidney disease, stage 3 (moderate); E78.5 Hyperlipidemia, unspecified; E11.22 Type 2 diabetes mellitus with diabetic chronic kidney disease; E87.6 Hypokalemia; I51.3 Intracardiac thrombosis, not elsewhere classified; D44.7 Neoplasm of uncertain behavior of aortic body and other paraganglia; E11.649 Type 2 diabetes mellitus with hypoglycemia without coma; I48.91 Unspecified atrial fibrillation; R57.0 Cardiogenic shock; L89.151 Pressure ulcer of sacral region, stage 1; Z90.710 Acquired absence of both cervix and uterus; Z85.41 Personal history of malignant neoplasm of cervix uteri
CPT/HCPCS: 31500; 33967; 36415; 36556; 36600; 71045; 71250; 74176; 76536; 76775; 80053; 81001; 82306; 82570; 82607; 82728; 82746; 82805; 82962; 83036; 83540; 83550; 83605; 83735; 83835; 83880; 83935; 83970; 84100; 84132; 84300; 84443; 84484; 84550; 85025; 85610; 85730; 87040; 87070; 87081; 87205; 93005; 93306; 93458; 93886; 94002; 94003; 94761; 96361; 96374; 96375; 99152; 99153; 99291; A4618; C9113; G0378; J0330; J0610; J1815; J2250; J2405; J2543; J3480; J7060; Q9956